=== PATIENT | male | born 1960 | race Caucasian/White ===

== ENCOUNTER 2019-12-15 09:06 | Inpatient (IN) | payer OTHER ==
[~2019-12-15] VITALS: Ht 172.7 cm; Wt 91.1 kg
[2019-12-15 09:44] LABS: BASOPHILS ABSOLUTE AUTO 0.04 K/mm3 (0.00-0.23); BASOPHILS PERCENT AUTO 0 % (0-2); EOSINOPHILS ABSOLUTE AUTO 0.21 K/mm3 (0.00-0.68); EOSINOPHILS PERCENT AUTO 2 % (0-6); Hemoglobin 14.2 g/dL (13.5-17.5); IMMATURE GRAN ABSOLUTE AUTO 0.04 K/mm3 (0.00-0.10); IMMATURE GRAN PERCENT AUTO 0 % (0-1); LYMPHOCYTES ABSOLUTE AUTO 2.16 K/mm3 (0.84-5.20); LYMPHOCYTES PERCENT AUTO 19 % (21-46); MONOCYTES ABSOLUTE AUTO 0.99 K/mm3 (0.16-1.47); MONOCYTES PERCENT AUTO 9 % (4-13); Mean Corpuscular HGB 30.7 pg (26.0-34.0); Mean Corpuscular HGB Conc 32.3 g/dL (31.5-36.5); Mean Corpuscular Volume 95 fL (80-100); Mean Platelet Volume 9.3 fL (9.1-12.4); NEUTROPHILS ABSOLUTE AUTO 7.75 K/mm3 (1.96-9.15); NEUTROPHILS PERCENT AUTO 69 % (41-73); Platelet Count 316 K/mm3 (150-400); RDW Coefficient Variation 13.5 % (11.7-14.2); RDW Standard Deviation 46.6 fL (35.1-46.3); Red Blood Cell Count 4.63 M/mm3 (4.30-5.90); White Blood Cell Count 11.19 K/mm3 (4.00-11.30)
[2019-12-15] MEDS ORDERED: LISI5 PO (09:50)
[2019-12-15] MEDS ORDERED: FURO40 PO (09:50)
[2019-12-15] MEDS ORDERED: SPIR50 PO (09:50)
[2019-12-15] MEDS ORDERED: ASPI81CH PO (09:51)
[2019-12-15] MEDS ORDERED: METO50ER PO (09:51)
[2019-12-15] MEDS ORDERED: ALBU90OI INH (09:51)
[2019-12-15 09:53] LABS: Source, Urine Clean Catch
[2019-12-15 09:57] LABS: Bilirubin, Urine Neg (Neg); Blood, Urine Neg (Neg); Glucose Qualitative, Urine Neg (Neg); Ketones, Urine Neg (Neg); Leukocyte Esterase, Urine Neg (Neg); Nitrite, Urine Neg (Neg); Protein, Urine 1+ (Neg); Urobilinogen, Urine NORM (Normal)
[2019-12-15 09:58] LABS: Appearance, Urine Clear (Clear); Color, Urine Yellow (P-Yellow)
[2019-12-15 10:00] LABS: Base Excess Venous 2.9 mmol/L; PCO2 Venous 53.7 mmHg (38-42); PO2 Venous 34.8 mmHg (38-42); pH Blood Venous 7.34 (7.34-7.37)
[2019-12-15 10:03] LABS: Albumin, Blood 3.9 g/dL (3.4-5.0); Bilirubin, Total 0.6 mg/dL (0.1-1.0); Bun/Creatinine Ratio 22.6 (12.0-20.0); Calcium, Blood 9.1 mg/dL (8.5-10.1); Creatinine, Blood 1.37 mg/dL (0.60-1.20); Globulin, Blood 3.9 g/dL (2.2-4.0); Potassium, Blood 4.5 mmol/L (3.5-5.5); Total Protein, Blood 7.8 g/dL (6.4-8.2); Troponin I 0.167 ng/mL (0.000-0.040)
[2019-12-15 10:08] LABS: U Amphetamine Screen DETECTED; U Barbituate Screen Not Detected; U Benzodiazapine Screen Not Detected; U Buprenorphine Screen Not Detected; U Cannabinoids Screen DETECTED; U Cocaine Screen Not Detected; U Methadone Screen Not Detected; U Methamphetamine Screen DETECTED; U Opiates Screen Not Detected; U Oxycodone Screen Not Detected; U Propoxyphene Screen Not Detected
[2019-12-15] MEDS ORDERED: Symbicort 16010.2 GM INH (12:24)
[2019-12-15] MEDS ORDERED: THERA1 EACH PO (13:15)
[2019-12-15] MEDS ORDERED: Natural Vita400 UNIT PO (13:16)
--- NOTE | 2019-12-15 16:22 | NUR ---
Echocardiogram using 0.60ml of Definity contrastwas performed.
--- NOTE | 2019-12-15 16:38 | NUR ---
MEDICAL RECORDS REQUEST PT PCP IN [facility] IS DR DELISA CORONADO. PHONE #[phone]. MEDICAL RECORDS # . NO ONE ANSWERED. NO RECORED FAX NUMBER. WILL RECALL TOMORROW. CONTINUE POT.
--- NOTE | 2019-12-15 17:11 | NUR ---
EVENING NOTE PT ALERT AND ORIENTED. SR WITH LBBB AND PVC. NO VT NOTED. LAB DRAWN TO CHECK POTASSIUM. ECHO DONE. PT VOIDING WELL PER URINAL. WATCHING THE SUPER BOWL. CHAIN STOCKS BREATHING NOTED BY INTEGRITY CONSULTANT AND NURSE. VSS. PT RELATED THAT HIS BREATHING IS IMPROVING. CONTINUE POT.
--- NOTE | 2019-12-15 20:56 | NUR ---
Assumed care Pt sleeping at time of arrival, breathing even, unlabored. VSS. A&Ox4. Conversing appropriately, making needs known with call light, steady gait, using urinal for voiding, voided 400 mls. Pt stating SOB improved. See shift assessment for detailed assessment. No acute concerns to note at begining of shift. Will continue to monitor.
[2019-12-16 04:23] LABS: Hematocrit 45.4 % (37.0-53.0); Hemoglobin 14.6 g/dL (13.5-17.5); Mean Corpuscular HGB 30.5 pg (26.0-34.0); Mean Corpuscular HGB Conc 32.2 g/dL (31.5-36.5); Mean Corpuscular Volume 95 fL (80-100); Mean Platelet Volume 9.8 fL (9.1-12.4); Platelet Count 321 K/mm3 (150-400); RDW Coefficient Variation 13.2 % (11.7-14.2); RDW Standard Deviation 45.7 fL (35.1-46.3); Red Blood Cell Count 4.79 M/mm3 (4.30-5.90); White Blood Cell Count 9.73 K/mm3 (4.00-11.30)
[2019-12-16 04:47] LABS: Magnesium, Blood 2.5 mg/dL (1.6-2.4)
[2019-12-16 04:48] LABS: Albumin, Blood 3.5 g/dL (3.4-5.0); Albumin/Globulin Ratio 0.9 (0.8-1.8); Bilirubin, Total 0.9 mg/dL (0.1-1.0); Bun/Creatinine Ratio 21.9 (12.0-20.0); Calcium, Blood 9.2 mg/dL (8.5-10.1); Creatinine, Blood 1.6 mg/dL (0.60-1.20); Globulin, Blood 3.9 g/dL (2.2-4.0); Potassium, Blood 4.2 mmol/L (3.5-5.5); Total Protein, Blood 7.4 g/dL (6.4-8.2)
--- NOTE | 2019-12-16 04:56 | NUR ---
Shift Summary No acute events overnight, pt sleeping throughout almost the entire shift. When awake, pt is alert and oriented, able to make needs known, breathing unlabored on 2LNC. Pt with irregular breathing patterns, normal per pt. Tele shows Sinus, BBB, PVC, PAC. One run of nonsustained VTACH of 8 beats this shift. Pt asx. Pt voiding in urinal at bedside. Labs show increased creatinine and decreased GFR. Will continue to monitor and update if acute changes occur before day RN assumes care.
--- NOTE | 2019-12-16 18:25 | NUR ---
SHIFT SUMMARY NO ACUTE CHANGES NOTED THROUGH THE DAY. PT HAS BEEN RESTING QUIETLY IN BED. PT REMAINS A&O X4, VSS, RESP UNLABORED, ON 2 L NC, IV SL, TOLERATING PO INTAKE, VOIDING ESTUARDO URINE. PT HAS BEEN CHANGED TO MEDICAL STATUS AND WILL BE MOVED WHEN A ROOM IS AVAILABLE.
--- NOTE | 2019-12-16 21:38 | NUR ---
Assumed care Assumed care of pt, he is alert and oriented, able to make needs known. Pt tolerated shower this shift. VSS. No events on tele so far. Pt is appropriate and cooperative with care. This pt is more awake and involved this shift than when this RN cared for him 12/15/19 NOC shift. Pt able to recall information appropriately. Lungs clear, diminished slightly to bases. No edema present. Voiding in urinal at bedside. S/L. Will continue to monitor. No acute concerns to note. See shift assessment for detailed assessment
[2019-12-17 04:48] LABS: BASOPHILS ABSOLUTE AUTO 0.04 K/mm3 (0.00-0.23); BASOPHILS PERCENT AUTO 0 % (0-2); EOSINOPHILS ABSOLUTE AUTO 0.31 K/mm3 (0.00-0.68); EOSINOPHILS PERCENT AUTO 3 % (0-6); Hematocrit 45.7 % (37.0-53.0); Hemoglobin 14.9 g/dL (13.5-17.5); IMMATURE GRAN ABSOLUTE AUTO 0.03 K/mm3 (0.00-0.10); IMMATURE GRAN PERCENT AUTO 0 % (0-1); LYMPHOCYTES ABSOLUTE AUTO 2.09 K/mm3 (0.84-5.20); LYMPHOCYTES PERCENT AUTO 22 % (21-46); MONOCYTES ABSOLUTE AUTO 0.98 K/mm3 (0.16-1.47); MONOCYTES PERCENT AUTO 10 % (4-13); Mean Corpuscular HGB 30.8 pg (26.0-34.0); Mean Corpuscular HGB Conc 32.6 g/dL (31.5-36.5); Mean Corpuscular Volume 94 fL (80-100); Mean Platelet Volume 9.7 fL (9.1-12.4); NEUTROPHILS ABSOLUTE AUTO 6.22 K/mm3 (1.96-9.15); NEUTROPHILS PERCENT AUTO 64 % (41-73); Platelet Count 304 K/mm3 (150-400); RDW Coefficient Variation 13.2 % (11.7-14.2); RDW Standard Deviation 45.3 fL (35.1-46.3); Red Blood Cell Count 4.84 M/mm3 (4.30-5.90); White Blood Cell Count 9.67 K/mm3 (4.00-11.30)
[2019-12-17 05:06] LABS: Bun/Creatinine Ratio 23.2 (12.0-20.0); Creatinine, Blood 1.38 mg/dL (0.60-1.20); Potassium, Blood 3.9 mmol/L (3.5-5.5)
--- NOTE | 2019-12-17 05:10 | NUR ---
Shift Summary Pt with no acute events overnight. Pt is excessively tired and hungry, sleeping and eating much of this shift. Overall, VSS, no apparent signs of distress, breathing RA when awake, 2L when sleeping. Breathing is unlabored, pattern is irregular, normal per pt. Independant in room with steady gait. Calls appropriately, calm and cooperative with care. Appreciative of staff. No acute concerns. No declines from initial assessment. Will continue to monitor until day RN assumes care.
--- NOTE | 2019-12-17 08:52 | NUR ---
AM NOTE... ASSUMED CARE OF PT APROX 0700. PT IS A&Ox4 AND IND IN THE ROOM. PT WAS ADMITTED FOR CHF EXAC/ZHEN. CURRENTLY PT IS DIURESING WELL AND MAY D/C HOME TODAY. PT'S VS STABLE, PT DENIES ANY SOB, CHEST PAIN OR N/V. NO EDEMA NOTED ON ASSESSMENT, L/S CLEAR T/O PT IS ON RA WITH O2 SATS >92%. PT HAS IRRGULAR BREATHING PATTERN, PT STATES THIS IS NORMAL FOR HIM. BT PRESENT AND NORMOACTIVE, ABD IS SOFT AND NONTENDER TO PALP. CALL LIGHT IN REACH, WILL CONTINUE TO MONITOR.
--- NOTE | 2019-12-17 11:43 | NUR ---
PT D/C PT D/C HOME. PT EDUCATION PROVIDED VERBALLY AND WRITTEN, NEW MEIDCATION EDUCATION PROVIDED WELL. PT'S BELONGINGS PACKED AND SENT WITHE THE PT. NEW MEDICATIONS CALLED INTO THE PT'S PHARMACY OF CHOICE, FOLLOW UP APPOINTMENTS MAID. PT'S 2 IVS REMOVED WNL. PT'S VS STABLE, PT DENIES CHEST PAIN/PRESURE N/V SOB OR LIGHTHEADEDNESS.
== END 2019-12-17 11:47 | disposition home or self-care (01) | DRG 280 ==
LOC: ER 09:06 → PCU 13:06
PROVIDERS: Nurse Practitioner Acute Care; Physician Assistant; ADMIT Internal Medicine
DX: I11.0 Hypertensive heart disease with heart failure (principal); J96.01 Acute respiratory failure with hypoxia; I21.A1 Myocardial infarction type 2; N17.9 Acute kidney failure, unspecified; I47.2 Ventricular tachycardia; Z79.82 Long term (current) use of aspirin; I50.23 Acute on chronic systolic (congestive) heart failure; F15.10 Other stimulant abuse, uncomplicated; I42.8 Other cardiomyopathies
CPT/HCPCS: 36415; 71046; 80048; 80053; 82550; 82553; 82803; 83735; 83880; 84132; 84484; 85025; 85027; 93005; 93010; 96365; 96375; 99285-25; C8929; J1650; J1940; J3475; Q9957

== ENCOUNTER 2020-01-26 10:58 | Inpatient (IN) | payer OTHER ==
[~2020-01-26] VITALS: Ht 175.3 cm; Wt 87.9 kg
[~2020-01-26 10:58] MED LIST: ALBU90OI INH; ASPI81CH PO; FURO40 PO; LISI5 PO; METO50ER PO; Natural Vita400 UNIT PO; SPIR50 PO; Symbicort 16010.2 GM INH; THERA1 EACH PO
[2020-01-26 11:56] LABS: BASOPHILS ABSOLUTE AUTO 0.03 K/mm3 (0.00-0.23); BASOPHILS PERCENT AUTO 0 % (0-2); EOSINOPHILS ABSOLUTE AUTO 0.08 K/mm3 (0.00-0.68); EOSINOPHILS PERCENT AUTO 1 % (0-6); Hematocrit 41.9 % (37.0-53.0); Hemoglobin 13.4 g/dL (13.5-17.5); IMMATURE GRAN ABSOLUTE AUTO 0.02 K/mm3 (0.00-0.10); IMMATURE GRAN PERCENT AUTO 0 % (0-1); LYMPHOCYTES ABSOLUTE AUTO 2.29 K/mm3 (0.84-5.20); LYMPHOCYTES PERCENT AUTO 26 % (21-46); MONOCYTES ABSOLUTE AUTO 0.82 K/mm3 (0.16-1.47); MONOCYTES PERCENT AUTO 9 % (4-13); Mean Corpuscular HGB 30.7 pg (26.0-34.0); Mean Corpuscular Volume 96 fL (80-100); Mean Platelet Volume 10.1 fL (9.1-12.4); NEUTROPHILS ABSOLUTE AUTO 5.64 K/mm3 (1.96-9.15); NEUTROPHILS PERCENT AUTO 64 % (41-73); Platelet Count 235 K/mm3 (150-400); RDW Coefficient Variation 12.5 % (11.7-14.2); RDW Standard Deviation 44.2 fL (35.1-46.3); Red Blood Cell Count 4.37 M/mm3 (4.30-5.90); White Blood Cell Count 8.88 K/mm3 (4.00-11.30)
[2020-01-26 12:06] LABS: Albumin, Blood 3.8 g/dL (3.4-5.0); Bilirubin, Total 0.7 mg/dL (0.1-1.0); Bun/Creatinine Ratio 16.1 (12.0-20.0); Calcium, Blood 9.3 mg/dL (8.5-10.1); Creatinine, Blood 1.49 mg/dL (0.60-1.20); Globulin, Blood 3.9 g/dL (2.2-4.0); Potassium, Blood 4.5 mmol/L (3.5-5.5); Total Protein, Blood 7.7 g/dL (6.4-8.2); Troponin I 0.088 ng/mL (0.000-0.040)
[2020-01-26 14:45] LABS: International Normalized Ratio 1.07; Prothrombin Time Results 11.4 Sec (9.7-11.5)
--- NOTE | 2020-01-26 15:08 | NUR ---
ADMISSION NOTIFIED BY [employer] OPERATIONS CONSULTANT THAT PT TO BE ADMITTED TO ICU ROOM 15. REPORT RECEIVED FROM SANDEEP SANDOVAL IN ER AT THIS TIME.
--- NOTE | 2020-01-26 15:58 | NUR ---
DR. LOREE RALPH TO BEDSIDE FOR ASSESSMENT. VISUALIZED POST CARDIOVERSION EKG AND ICU NIGHT SHIFT. PLAN TO CONTINUE WITH AMIODERONE, HEPARIN AND START LASIX PER DR. RALPH.
[2020-01-26] MEDS ORDERED: Colace100 MG PO (16:39)
[2020-01-26 17:43] LABS: U Amphetamine Screen DETECTED; U Barbituate Screen Not Detected; U Benzodiazapine Screen Not Detected; U Buprenorphine Screen Not Detected; U Cannabinoids Screen DETECTED; U Cocaine Screen Not Detected; U Methadone Screen Not Detected; U Methamphetamine Screen DETECTED; U Opiates Screen Not Detected; U Oxycodone Screen Not Detected; U Phencyclidine Screen Not Detected; U Propoxyphene Screen Not Detected
--- NOTE | 2020-01-26 19:10 | NUR ---
ASSUMED CARE OF PT, BEDSIDE REPORT RECEIVED. PT IS RESTING QUIETLY ON RIGHT SIDE IN BED BENT AT KNEES AND HIPS TO MODERATELY CURLED POSITION. HE DENIES CP/PRESSURE, STATES THAT HIS BREATHING FEELS "OK" DENIES N/V, DENIES NUMBNESS TINGLING. ADMITS TO 6/10 CRAMPING ABD PAIN THAT HE NOTICED FOLLOWING HIS CARDIOVERSION EARLIER TODAY. HE STATES THAT HE DOES HAVE ABD DISCOMFORT AT BASELINE HOWEVER IT DOES NOT NORMALLY HURT. WARM BLANKET PROVIDED, LIGHTS OFF IN ROOM, CURTAIN PULLED, WILL MONITOR PAIN LEVEL. HEART RATE IS REGULAR, SINUS RHYTHM NOTED ON MONITOR, RATE IN THE 80S, PRESSURE IS BORDERLINE HYPOTENSIVE AT THIS TIME, MAP IS MAINTAINING, ST DEPRESSION AND T WAVE INVERSION IS NOTED ON MONITOR, PER OFFGOING RN THIS HAS MAINTAINED UNCHANGED FOLLOWING CARDIOVERSION AND HAS BEEN VISUALIZED BY DR RALPH AND DISCUSSED, WILL CONT TO MONITOR. LUNGS ARE CLEAR THROUGHOUT, SATS ARE MAINTAINING MID TO UPPER 90S WITH OXYGEN AT 4 L/MIN VIA NC, NO VISIBLE INCREASED WORK OF BREATHING AT THIS TIME AND PT IS SPEAKING IN FULL SENTENCES, SKIN IS PINK, COOL, AND DRY, NO EDEMA IS NOTED. ABD WITH HYPOACTIVE BOWEL TONES, MILD TO MODERATE DISTENTION IS NOTED, SOME TENDERNESS WITH LIGHT PALPATION. URINAL AT BEDSIDE, NO VOID OF YET. AMIODARONE GTT INFUSING AT 1 MG/MIN AT THIS TIME, DUE TO DECREASE AT 2100, HEPARIN GTT INFUSING AT 13 UNITS/KG/HR (21.1 ML/HR) SET FOR 81 KG. WILL CONT TO MONITOR.
--- NOTE | 2020-01-26 19:21 | NUR ---
REPORT TO SANDEEP WEIR TO ASSUME CARE
--- NOTE | 2020-01-26 19:22 | NUR ---
ARRIVAL TO ICU/SUMMARY PT ARRIVED TO ICU 15 THIS AFTERNOON ON AMIODERONE GTT. HEPARIN GTT INITIATED. PT ANXIOUS, RR ELEVATED, BUT 02 SAT 90'S ON ROOM AIR. SLIGHT ST DEPRESSION AND T WAVE INVERSION NOTED ON BAG CHECKER. PT MOANING AND RESTLESS, REPORTS MILD TENDERNESS IN ABDOMEN AND NAUSEA. REPORTS HISTORY OF CONSTIPATION. MEDICATED WITH ZOFRAN, SINCE THEN HAS SLEPT QUIETLY. AROUSES OCCASIONALLY AND MAKES NEEDS KNOWNS, STILL HAS INCREASED RR WHEN AWAKE, BUT RR EVEN AND UNLABORED WHILE ASLEEP. PLACED ON 2 LPM NASAL CANNULA PT DESATURATES IN HIS SLEEP INTERMITTENTLY. BLOOD PRESSURE SOFT, BUT MAPS GREATER THAN 65. PT DROWSY BUT ORIENTED. WITHDRAWN. RELUCTANT TO PARTICIPATE IN ADMISSION QUESTIONS, BUT DOES SO WITH ENCOURAGEMENT AND EDUCATION. PT HAS USED URINAL WITH ESTUARDO OUTPUT, TOX SCREEN SENT AND RESULTS ARE BACK. PT OPEN ABOUT DRUG USE, AND REPORTS, "I WON'T BE DOING IT AFTER TODAY." BED ALARM IN PLACE FOR SAFETY.
--- NOTE | 2020-01-26 21:32 | NUR ---
AMIODARONE GTT RATE DECREASED TO 0.5 MG/MIN
--- NOTE | 2020-01-26 22:07 | NUR ---
NAUSEA PT STATES "I'M GOING TO THROW UP" ZOFRAN ADMIN, WILL MONITOR
--- NOTE | 2020-01-26 22:30 | NUR ---
HYPOTENSION ROUNDED ON PT FOR POST ZOFRAN NAUSEA ASSESSMENT, PT REQUESTS BLANKETS REMOVED AND STATES THAT HE FEELS "HOT" STATES "HELP ME" AND "I DON'T FEEL GOOD" COLOR IS ASHEN, BLOOD PRESSURE OBTAINED 52/39 WITH HOB ELEVATED, HOB LOWERED AND BLOOD PRESSURE RECHECKED, CONTINUES HYPOTENSIVE. CALL PLACED TO DR RALPH REGARDING PT CONDITION AT 2240.
--- NOTE | 2020-01-26 22:50 | NUR ---
DR RALPH AT BEDSIDE, MANUAL BLOOD PRESSURE VERIFIED, VERBAL ORDER FOR LEVOPHED PERIPHERALLY AT 2 MCG/MIN, PHARMACY NOTIFIED VIA [employer].
--- NOTE | 2020-01-26 23:00 | NUR ---
HEPARIN GTT TO STANDBY PER DR RALPH, LEVOPHED STARTED AT 2 MCG/MIN PER ORDERS, PLAN TO TAKE PT TO FORM GRADER
--- NOTE | 2020-01-26 23:10 | NUR ---
PT COLOR BECOMES FLUSHED, FEET AND HANDS ARE NOW WARM TO THE TOUCH, ORDERS RECEIVED FOR STAT CRITICAL CARE CONSULT WITH CONCERN FOR POSSIBLE SEPSIS.
--- NOTE | 2020-01-26 23:15 | NUR ---
DR CRUZ NOTIFIED OF CONSULT, SHE STATES THAT SHE WILL REVIEW PT'S CHART AND PUT IN ORDERS.
[2020-01-26 23:28] LABS: Source, Urine Catheter
[2020-01-26 23:30] LABS: Bilirubin, Urine Neg (Neg); Blood, Urine 5+ (Neg); Glucose Qualitative, Urine Neg (Neg); Ketones, Urine Neg (Neg); Leukocyte Esterase, Urine Neg (Neg); Nitrite, Urine Neg (Neg); Protein, Urine 2+ (Neg); Urobilinogen, Urine 1+ (Normal)
--- NOTE | 2020-01-26 23:30 | NUR ---
DR CRUZ CALLED AND STATES THAT SHE WILL BE IN TO SEE PT, ORDERS NOTED. DR RALPH REMAINS IN ROOM FOR CENTRAL LINE INSERTION OF THIS TIME. LEVOPHED RATE INCREASED TO 4 MCG/MIN PER DR RALPH.
[2020-01-26 23:50] LABS: Color, Urine Yellow (P-Yellow)
--- NOTE | 2020-01-26 23:50 | NUR ---
CENTRAL LINE INSERTION PROCEDURE COMPLETE, LEVOPHED TO CENTRAL LINE PER DR RALPH ATTHIS TIME, LABS DRAWN PER ORDERS.
[2020-01-26 23:51] LABS: Appearance, Urine Clear (Clear); Bacteria Few /hpf; Squamous Epithelial Cells Not Seen /hpf (Few); White Blood Cells, Urine 0-2 /hpf (0-5)
[2020-01-27] LABS: Bicarbonate Venous 23.5 mmol/L (24.0-30.0); PCO2 Venous 55.4 mmHg (38-42); PO2 Venous 40.6 mmHg (38-42)
[2020-01-27 00:04] LABS: Hematocrit 45.8 % (37.0-53.0); Hemoglobin 15.2 g/dL (13.5-17.5); Mean Corpuscular HGB 31.5 pg (26.0-34.0); Mean Corpuscular HGB Conc 33.2 g/dL (31.5-36.5); Mean Corpuscular Volume 95 fL (80-100); Mean Platelet Volume 9.7 fL (9.1-12.4); Platelet Count 214 K/mm3 (150-400); RDW Coefficient Variation 12.4 % (11.7-14.2); RDW Standard Deviation 43.2 fL (35.1-46.3); Red Blood Cell Count 4.82 M/mm3 (4.30-5.90); White Blood Cell Count 20.93 K/mm3 (4.00-11.30)
--- NOTE | 2020-01-27 00:24 | NUR ---
EKG COMPLETE, T WAVES NOTED UPRIGHT IN LEAD II, ST DEPRESSION IS IMPROVED.
[2020-01-27 00:26] LABS: International Normalized Ratio 1.41
[2020-01-27 00:29] LABS: Magnesium, Blood 1.9 mg/dL (1.6-2.4)
[2020-01-27 00:30] LABS: Prothrombin Time Results 14.8 Sec (9.7-11.5)
--- NOTE | 2020-01-27 00:30 | NUR ---
eCHOCARDIOGRAM COMPLETED USING 0.60ML OF DEFINITY CONTRAST.
[2020-01-27 00:32] LABS: BAND PERCENT MAN 4 % (0-8); BASOPHILS PERCENT MAN 0 % (0-2); EOSINOPHILS PERCENT MAN 0 % (0-6); LYMPHOCYTES ABSOLUTE MAN 1.46 K/mm3 (0.84-5.20); LYMPHOCYTES PERCENT MAN 7 % (21-46); MONOCYTES ABSOLUTE MAN 1.25 K/mm3 (0.16-1.47); MONOCYTES PERCENT MAN 6 % (4-13); SEG NEUTROPHILS PERCENT MAN 83 % (41-73); TOTAL CELLS COUNTED 100
[2020-01-27 00:34] LABS: Albumin, Blood 3.4 g/dL (3.4-5.0); Bun/Creatinine Ratio 12.5 (12.0-20.0); Calcium, Blood 9.1 mg/dL (8.5-10.1); Creatinine, Blood 2.4 mg/dL (0.60-1.20); Globulin, Blood 3.5 g/dL (2.2-4.0); Total Protein, Blood 6.9 g/dL (6.4-8.2)
--- NOTE | 2020-01-27 00:45 | NUR ---
RESPIRATORY PANEL COLLECTED, PT TOLERATED WELL.
--- NOTE | 2020-01-27 01:00 | NUR ---
DR RALPH RETURNS TO BEDSIDE, PLAN FOR THIS SHIFT IS TO TITRATE LEVOPHED FOR MAP OF 65, START DOBUTAMINE AT 3 MCG/KG/MIN AND TITRATE FOR URINE OUTPUT NOT TO EXCEED 10 MCG/KG/MIN.
--- NOTE | 2020-01-27 01:12 | NUR ---
PT WITH 10 SECOND RUN OF TACHYCARDIA 120-150 BPM, HE REMAINS ALERT AND ORIENTED, DENIES CP/PRESSURE, DENIES SOB/DYSPNEA, DENIES DIZZINESS/SYNCOPE, DENIES PALPITATIONS. WILL MONITOR.
[2020-01-27 02:07] LABS: Adenovirus Not Detected (NOT DETECT); Bordetella pertussis Not Detected (NOT DETECT); Chlamydophila pneumoniae Not Detected (NOT DETECT); Coronavirus 229E Not Detected (NOT DETECT); Coronavirus HKU1 Not Detected (NOT DETECT); Coronavirus NL63 Not Detected (NOT DETECT); Coronavirus OC43 Not Detected (NOT DETECT); Human Metapneumovirus Not Detected (NOT DETECT); Human Rhinovirus/Enterovirus Not Detected (NOT DETECT); Influenza A/2009-H1 Not Detected (NOT DETECT); Influenza A/H1 Not Detected (NOT DETECT); Influenza A/H3 Not Detected (NOT DETECT); Influenza B Not Detected (NOT DETECT); Mycoplasma pneumoniae Not Detected (NOT DETECT); Parainfluenza Virus 1 Not Detected (NOT DETECT); Parainfluenza Virus 2 Not Detected (NOT DETECT); Parainfluenza Virus 3 Not Detected (NOT DETECT); Parainfluenza Virus 4 Not Detected (NOT DETECT); Respiratory Syncytial Virus Not Detected (NOT DETECT)
[2020-01-27 05:33] LABS: BASOPHILS ABSOLUTE AUTO 0.02 K/mm3 (0.00-0.23); BASOPHILS PERCENT AUTO 0 % (0-2); EOSINOPHILS PERCENT AUTO 0 % (0-6); Hematocrit 43.2 % (37.0-53.0); Hemoglobin 14.4 g/dL (13.5-17.5); IMMATURE GRAN ABSOLUTE AUTO 0.08 K/mm3 (0.00-0.10); IMMATURE GRAN PERCENT AUTO 0 % (0-1); LYMPHOCYTES ABSOLUTE AUTO 0.95 K/mm3 (0.84-5.20); LYMPHOCYTES PERCENT AUTO 5 % (21-46); MONOCYTES ABSOLUTE AUTO 1.05 K/mm3 (0.16-1.47); MONOCYTES PERCENT AUTO 6 % (4-13); Mean Corpuscular HGB 31.3 pg (26.0-34.0); Mean Corpuscular HGB Conc 33.3 g/dL (31.5-36.5); Mean Corpuscular Volume 94 fL (80-100); NEUTROPHILS ABSOLUTE AUTO 16.85 K/mm3 (1.96-9.15); NEUTROPHILS PERCENT AUTO 89 % (41-73); Platelet Count 219 K/mm3 (150-400); RDW Coefficient Variation 12.2 % (11.7-14.2); RDW Standard Deviation 41.9 fL (35.1-46.3); White Blood Cell Count 18.95 K/mm3 (4.00-11.30)
[2020-01-27 05:54] LABS: International Normalized Ratio 1.44; Prothrombin Time Results 15.1 Sec (9.7-11.5)
[2020-01-27 05:57] LABS: Albumin, Blood 3.3 g/dL (3.4-5.0); Albumin/Globulin Ratio 0.9 (0.8-1.8); Bilirubin, Total 1.6 mg/dL (0.1-1.0); Bun/Creatinine Ratio 13.1 (12.0-20.0); Creatinine, Blood 2.29 mg/dL (0.60-1.20); Globulin, Blood 3.5 g/dL (2.2-4.0); Magnesium, Blood 1.8 mg/dL (1.6-2.4); Potassium, Blood 4.8 mmol/L (3.5-5.5); Total Protein, Blood 6.8 g/dL (6.4-8.2)
--- NOTE | 2020-01-27 06:24 | NUR ---
PT RESTS QUIETLY AFTER MIDNOC, AROUSES EASILY TO VERBAL STIMULI, DENIES PAIN, DENIES NAUSEA, DENIES CP/PRESSURE, DENIES SOB/DYSPNEA AND STATES THAT HE IS "ACTUALLY FEELING PRETTY GOOD" PRESSURES HAVE BEEN IMPROVED WITH LEVOPHED, INTITIATED AT 2 MCG/MIN AND TITRATED UP TO MAX OF 6 MCG/MIN THIS SHIFT, HAVE TITRATED BACK DOWN TO 4 MCG/MIN OF THIS TIME, DOBUTAMINE STARTED INFUSING AT 3 MCG/KG/MIN AT 0109 THIS AM, PT WAS NOTED WITH 10 SECOND RUN OF TACHYCARDIA UP TO NEAR 150 BPM AT 0112, PT DENIED SYMPTOMS AT THAT TIME AND NO FURTHER INCIDENTS SINCE THAT TIME, RHYTHM STRIP REVIEWED BY DR RALPH THIS AM. PT SKIN HAS REMAINED PWD SINCE INITIATION OF LEVOPHED. URINE OUPTUT IMPROVED. GOAL FOR TODAY PER DR RALPH IS TO TITRATE LEVOPHED TO STANDBY. QUAD LUMEN CENTRAL LINE TO RIGHT GROIN NEAR MIDNOC, DRESSING REMAINS CDI THIS AM, SITE WNL WITH SMALL AMOUNT OF OOZING PRESENT UNDER DRESSING. PT WAS ON NRB MASK AT 15 L/MIN WITH PRIOR DOCUMENTED HYPOTENSIVE EPISODE SEE NOTES FROM 2230 TO 013 THIS AM, HAVE BEEN ABLE TO RETURN TO NASAL CANNULA AT 6 L/MIN AND TITRATE DOWN TO 4 L/MIN OF THIS TIME, LUNGS REMAIN CLEAR THROUGHOUT, PT CONTINUES TACHYPNEIC HOWEVER ALSO CONTINUES TO DENY SOB/DYSPNEA THIS AM. URINE OUTPUT OF 790 ML SINCE VOGT INSERTION AND INITIATION OF DOBUTAMINE AND LEVOPHED. DR RALPH STATES PLAN IS TO DIURESE PT AFTER LEVOPHED IS SUCCESSFULLY TITRATED TO OFF.
--- NOTE | 2020-01-27 07:39 | NUR ---
CARE ASSUMED REPORT RECEIVED, CARE ASSUMED AT 0700 FROM SANDEEP WEIR. LEVOPHED, DOPAMINE AND HEPARIN INFUSING PER ORDERS. SEE ICU FLOWSHEET. PT SLEEPY, BUT AROUSES TO NAME. DENIES PAIN, CHEST PAIN OR PRESSURE, DIZZINESS, OR SOB. SLIGHTLY TACHYPNEIC. RR 20'S. LOW GRADE FEVER - TEMP VOGT. CENTRAL LINE TO RIGHT FEMORAL INFUSING. CONTINUOUS ICU MONITOR SHOWS NORMAL SINUS RHYTHM - RATE 90'S-100'S. BP STABLE WITH PRESSORS. CALL LIGHT IN PLACE FOR SAFETY. PT AGREEABLE TO USE CALL LIGHT FOR NEEDS.
--- NOTE | 2020-01-27 09:26 | NUR ---
DR. LOREE RALPH TO BEDSIDE FOR ASSESSMENT. PT REQUESTING ICE CHIPS. PER DR. RALPH, OK TO FEED PATIENT BUT START WITH CLEARS AND ADVANCE TOLERATED. LOVEPHED TITRATED DOWN PER DR. RALPH REQUEST. PLAN TO TITRATE LEVOPHED OFF MAXIMILIANO TO MAINTAIN MAP OF 60 OR GREATER. START PO AMIODERONE. SEE PROVIDER PROGRESS NOTE AND NEW ORDERS.
--- NOTE | 2020-01-27 12:26 | NUR ---
HEART RHYTHM/DR. RALPH PT'S HEART RHYTHM NOTED TO HAVE INCREASED PVC'S AND PAC'S. PT ALERT, ORIENTED. EXTREMITIES PINK, WARM AND DRY. BP STABLE. CALL PLACED TO DR. ARLPH. ORDER TO TURN OFF DOBUTAMINE. DOBUTAMINE OFF AT THIS TIME.
--- NOTE | 2020-01-27 13:11 | NUR ---
UPDATE PT HAVING INCREASED ECTOPY, RATE UP TO 140'S INTERMITTENTLY. BP STABLE. PT CONTINUES TO BE ALERT, ORIENTED. DENIES CHEST PAIN/DIZZINESS. UPDATED DR. RALPH. NEW ORDER TO INCREASE AMIODERONE PO DOSE TO FOUR TIMES PER DAY, FIRST DOSE STAT. AMIODERONE GIVEN.
--- NOTE | 2020-01-27 16:27 | NUR ---
DR. LOREE RALPH TO BEDSIDE FOR REASSESSMENT. INSPECTOR BARREL HISTORY REVIEWED BY DR. RALPH, NO NEW ORDERS AT THIS TIME. CONTINUE WITH HIGH DOSE ORAL AMIODERONE FOR ECTOPY.
--- NOTE | 2020-01-27 18:21 | NUR ---
SUMMARY SINCE PREVIOUS NOTE, PT HAS CONTINUED TO HAVE PVC'S, PAC'S AND INTERMITTENTLY GONE INTO AN ELEVATED RATE OF 130'S-140'S. BP STABLE. PT HAS DENIED CHEST PAIN, DIZZINESS OR SHORTNESS OF BREATH. HAS SLEPT MOST OF DAY, BUT AROUSES EASILY. ATE ENTIRE DINNER. PROVIDED WITH WARM BLANKETS. PT RECEPTIVE TO EDUCATION REGARDING PLAN OF CARE, SAYS, "I AM NEVER USING METH AGAIN AFTER ALL OF THIS." GOOD OUTPUT FROM VOGT CATHETER. NO BOWEL MOVEMENT TODAY. CALLING APPROPRIATELY FOR NEEDS.
--- NOTE | 2020-01-27 19:00 | NUR ---
ASSUMED CARE OF PT, BEDSIDE REPORT RECEIVED. PT IS ALERT AND ORIENTED RECLINING IN BED, SPEAKING IN FULL SENTENCES AND VISITING WITH FAMILY AT BEDSIDE. HE DENIES SOB/DYSPNEA, DENIES CP/PRESSURE, DENIES N/V. LUNGS CLEAR THROUGHOUT, SATS MAINTAINING WITH OXYGEN AT 4 L/MIN VIA NC, NO VISIBLE INCREASED WORK OF BREATHING AT REST. SINUS RHYTHM NOTED WITH PVCS AND PACS, PRESSURE IS MAINTAINING, LEVOPHED AND DOBUTAMINE GTTS ARE ON STANDBY, SKIN IS PWD, NO EDEMA IS NOTED, FEET AND HANDS BILAT ARE WARM WITH FULL RADIAL PULSES AND FAINT PEDAL PULSES. NORMOACTIVE BOWEL TONES ARE NOTED, ABD SOFT, NO GRIMACING/GUARDING WITH PALPATION. VOGT REMAINS IN PLACE DRAINING ESTUARDO URINE TO GRAVITY, SOME SEDIMENT IS NOTED IN TUBING. CENTRAL LINE REMAINS IN PLACE TO RIGHT GROIN, SITE WNL, DRESSING CDI. HEPARIN GTT INFUSING AT 15 UNITS/KG.
--- NOTE | 2020-01-27 19:14 | NUR ---
Per admit trigger, I saw Mr. Green to offer prayer and spiritual support. No family present at time of visit. He did not awaken to voice or touch. Prayer provided at bedside. Per chart, pt is Yazidism. Father Jayy will be following pt when available.
--- NOTE | 2020-01-27 19:23 | NUR ---
BEDSIDE REPORT TO SANDEEP WEIR TO ASSUME CARE
[2020-01-28 04:26] LABS: Bun/Creatinine Ratio 14.1 (12.0-20.0); Calcium, Blood 8.5 mg/dL (8.5-10.1); Creatinine, Blood 1.85 mg/dL (0.60-1.20); Magnesium, Blood 1.9 mg/dL (1.6-2.4); Potassium, Blood 4.8 mmol/L (3.5-5.5)
--- NOTE | 2020-01-28 07:30 | NUR ---
PT RESTS QUIETLY THROUGHOUT SHIFT, DENIES PAIN, DENIES N/V, DENIES CP/PRESSURE, DENIES SOB/DYSPNEA, STATES THAT HE HAS BEEN FEELING PRETTY GOOD. LUNGS REMAIN CLEAR THROUGHOUT THIS SHIFT, NO INCREASED WORK OF BREATHING IS NOTED WHILE PT IS AT REST, MILD INCREASED WORK OF BREATHING WITH INCREASE IN ACTIVITY HOWEVER SATS MAINTAIN WITH OXYGEN VIA NC NOW AT 2 L/MIN. CONTINUES IN SINUT RHYTHM THROUGHOUT NOC, FREQUENCY OF PVCS AND PACS HAS DECREASED HOWEVER THEY DO CONTINUE, PRESSURES ARE MAINTAINED WITH LEVOPHED AND DOBUTAMINE ON STANDBY. DR RALPH IN THIS AM, PLAN TO HOLD HEPARIN X 3 HOURS AND THEN DC CENTRAL LINE, HEPARIN TO STANDBY AT 0650 THIS AM, PHARMACY AWARE AND REQUESTS NOTIFIED IF HEPARIN RESUMED OR DC'D.
--- NOTE | 2020-01-28 07:50 | NUR ---
ASSUMED CARE PT LIES IN BED ASLEEP DURING REPORT, WHICH WAS GIVEN BY SANDEEP WEIR. STABLE VITALS, PT IS ON 2LPM NC WITH SAT'S IN THE MID 90'S. NO INCREASED WORK OF BREATHING NOTED, PT DENIES CP, SOB, AND DIZZINESS. PT HAS A PATENT AND DRAINING VOGT CATHETER. BED IS LOW AND LOCKED. CALL LIGHT WITHIN REACH. NO CURRENT GTTPS.
--- NOTE | 2020-01-28 09:27 | NUR ---
STATUS CHANGE/UPDATE PER NOC NURSE: LOREE WANTS PT TO STAY ONE MORE DAY IN ICU FOR MONITORING. SAIGAL: WHEN LOREE IS READY, AND PENDING ANY ACUTE CHANGES - PT CAN BE MADE MEDICAL STATUS WITH TELLY.
--- NOTE | 2020-01-28 17:45 | NUR ---
SHIFT SUMMARY PT HAD A GOOD DAY. HE IS ALERT AND ORIENTED X 4, HE HAS BEEN OFF PRESSORS/INOTROPES SINCE YESTERDAY, GOT UP TO THE CHAIR, AND HAD HIS VOGT REMOVED. VITALS REMAINED STABLE ALL DAY. PT HAD ADEQUATE URINE OUTPUT. HE WAS PUT BACK ON THE HEPARIN GTTP (12.3 UNITS/KG/HR, 81KG WEIGHT, AND 19.9 ML/HR - VERIFIED AND CONFIRMED BY DESTIN RN). @ 1200 - A FEW HOURS AFTER HAVING HIS FEMORAL CVC PULLED. HE WAS MADE PCU STATUS APPROX. AROUHND [id number]. BED LOW AND LOCKED. CALL LIGHT EDHIN REACH.
--- NOTE | 2020-01-28 21:00 | NUR ---
DURING BEDSIDE REPORT, PT WAS BOLUSED W HEPARIN & GTT INCREASED PER PHARMACY, SEE MAR. PT IS ALERT, DENIES SOB OR OTHER DISCOMFORT, NO CHEST PAIN. PT IS ON ROOM AIR. MONITOR SHOWS ST, VSS. PT VOIDING PER URINAL, CONCENTRATED URINE. PT AMB TO SINK WO DIFF, BRUSHED TEETH & WASHED FACE & AMB BACK TO BED. CALL LIGHT IS IN REACH.
--- NOTE | 2020-01-29 00:51 | NUR ---
PT TO TRANSFER TO PCU RM 12. REPORT GIVEN TO Sophie VELÁSQUEZ RN. PT TRANSPORTED BY WHEELCHAIR BY EMERGENCY MANAGEMENT DIRECTOR. PT HAS BEEN RESTING WO COMPLAINT. CONT ON HEPARIN GTT.
--- NOTE | 2020-01-29 01:09 | NUR ---
PCU ARRIVAL / CARE ASSUMPTION PT BROUGHT TO PCU RM 12 FROM ICU BY WHEEL CHAIR @ APPROX 0100. PT A&O X4, ABLE TO STAND & AMBULATE FROM W.C. TO BED W/ SBA. HEPARIN GTT INFUSING PER ORDERS, VERIFIED W/ 2ND RN. VSS. SPO2 > 92% ON RA. MONITOR SHOWS SR-ST, HR 90's-110. PT DENIES PAIN/DISCOMFORT OR NEEDS AT THIS TIME, STATING "I'M JUST TIRED." PT SETTLED IN TO BED, GOING TO SLEEP. WILL CONTINUE TO MONITOR AND PROVIDE CARE.
[2020-01-29 03:27] LABS: Hemoglobin 13.8 g/dL (13.5-17.5); Mean Corpuscular HGB 31.2 pg (26.0-34.0); Mean Corpuscular HGB Conc 33.7 g/dL (31.5-36.5); Mean Corpuscular Volume 93 fL (80-100); Mean Platelet Volume 10.2 fL (9.1-12.4); NRBC ABSOLUTE 0.03 K/mm3 (0.00-0.02); NRBC Auto 0.2 /100 WBC (0.0-0.2); Platelet Count 215 K/mm3 (150-400); RDW Coefficient Variation 12.2 % (11.7-14.2); Red Blood Cell Count 4.42 M/mm3 (4.30-5.90)
[2020-01-29 03:47] LABS: Bun/Creatinine Ratio 17.5 (12.0-20.0); Calcium, Blood 8.9 mg/dL (8.5-10.1); Creatinine, Blood 1.43 mg/dL (0.60-1.20); Magnesium, Blood 1.9 mg/dL (1.6-2.4); Potassium, Blood 4.8 mmol/L (3.5-5.5)
--- NOTE | 2020-01-29 06:11 | NUR ---
SHIFT SUMMARY PT CONTINUES TO BE A&O X4. VSS. MONITOR SHOWS SR-ST, HR 90's-110. NO EVENTS OVERNIGHT. WILL CONTINUE TO MONITOR AND PROVIDE CARE UNTIL REPORT OFF TO DAY SHIFT RN.
--- NOTE | 2020-01-29 08:49 | NUR ---
AM NOTE... ASSUMED CARE OF PT APROX 0700, PT IS A&Ox4 AND SBA IN THE ROOM. PT'S HEPARIN GTT RUNNING PER ORDERS. PT IS NSR IN THE 80'S-90'S. PT DENIES CHEST PAIN/PRESSURE N/V OR SOB. VS STABLE AT THIS TIME. L/S CLEAR T/O, PT IS ON RA WITH O2 SATS >90%. BT PRESENT AND HYPOACTIVE ABD SOFT AND NONTENDER TO PALP CALL LIGHT IN REACH WILL CONTINUE TO MONTIOR UNITL REPORT IS GIVEN TO ONCOMING RN.
[2020-01-29 10:38] LABS: CHOL/HDL RATIO 3.7; Cholesterol 156 mg/dL (50-200); HDL Cholesterol 42 mg/dL (>39); LDL/HDL RATIO 2.4; Low Density Lipoprotein Chol 103 mg/dL (0-110); Triglycerides 57 mg/dL (30-160); Troponin I 0.075 ng/mL (0.000-0.040); Very Low Density Lipoprot Chol 11 mg/dL (6-32)
[2020-01-29 10:53] LABS: Alanine Aminotransfer (ALT/SGP 5686 U/L (12-78); Aspartate Aminotrans (AST/SGOT 2888 U/L (12-37)
--- NOTE | 2020-01-29 14:19 | NUR ---
Pt. is in bed resting and seems to be doing fine,offered prayers for thept.
--- NOTE | 2020-01-29 18:20 | NUR ---
SHIFT SUMMARY... NO ACUTE NEGATIVE CHANGES NOTED THIS SHIFT. PT'S VS HAVE BEEN STABLE T/O SHIFT. PT HAD SHOWER THIS AFTERNOON WITH MINIMAL ASSIST. HEPARIN GTT WAS STOPPED AT 1745 WHEN XARELTO WAS GIVEN PER CARDIOLOGY PROVIDER ORDERS. 2L O2 WAS PLACED ON THE PT PER O2 SATS DROPPING TO MID 80'S IN HIS SLEEP. CARDIOLOGY PROVIDER AWARE AND NEW ORDERS OBTAINED. CALL LIGHT IN REACH WILL CONTINUE TO MONITOR UNTIL REPORT IS GIVEN TO ON COMING RN.
--- NOTE | 2020-01-29 19:41 | NUR ---
CARE ASSUMPTION PT A&O X4. VSS. MONITOR SHOWS SR, HR 90's. LUNG SOUNDS CLEAR, DIM IN BASES. SPO2 > 90% ON 3L NC TITRATED UP FROM 2L. RR 20-30. BREATHING IRREGULAR W/ EPISODES OF 15 SECONDS W/OUT TAKING A BREATH WHILE AWAKE. PT REPORTS THIS BREATHING PATTERN TO HAVE BEEN OCCURING "FOR AWHILE" OVER THE "PAST FEW DAYS." PT DENIES ANY DISCOMFORT. WILL CONTINUE TO MONITOR AND PROVIDE CARE.
[2020-01-30 05:33] LABS: Albumin, Blood 3.4 g/dL (3.4-5.0); Albumin/Globulin Ratio 0.9 (0.8-1.8); Calcium, Blood 8.7 mg/dL (8.5-10.1); Creatinine, Blood 1.53 mg/dL (0.60-1.20); Globulin, Blood 3.6 g/dL (2.2-4.0); Potassium, Blood 4.6 mmol/L (3.5-5.5)
--- NOTE | 2020-01-30 06:16 | NUR ---
SHIFT SUMMARY PT CONTINUES TO BE A&O X4. VSS. MONITOR SHOWING SR, HR 90's. LUNG SOUNDS CLEAR, DIM IN BASES. SPO2 > 90% ON 3L NC W/ RR 20-30 & IRREGULAR. PT C/O FEELING HOT ON MULT OCCASSIONS THIS SHIFT. PT PROVIDED W/ FAN AND ICE CHIPS UPON PT REQUEST T/O SHIFT. PT TEMP NORMAL. WILL CONTINUE TO MONITOR AND PROVIDE CARE UNTIL REPORT OFF TO DAY SHIFT RN.
--- NOTE | 2020-01-30 07:43 | NUR ---
pt laying in bed on his side, wakes easily, a/ox3, pleasant and cooperative with care, follows commands well, denies any complaints states he slept well, plan is to go home tomorrow, lungs are clear t/o, dim in bases, resp even and unlabored, no cough noted, is on 2 liters 02 via n/c, hrr, tele in place running sr to st per monitor, see strip, no edema noted, ppp+2, cap refill <3sec, vs stable, afebrile, iv site is clear and patent, btx4, abd flat soft nontender, voids without diff, skin has a few scabs, otherwise c/d/i, keara, melodie, call light in reach.
--- NOTE | 2020-01-30 12:28 | NUR ---
Met pt. in bed resting and doing fine offered prayers
--- NOTE | 2020-01-30 13:38 | NUR ---
PT HAD VISITORS IN ROOM, HE IS SITTING UP ON THE SIDE OF THE BED, DOING OK, HE DENIES COMPLAINTS. CALL LIGHT IN REACH.
--- NOTE | 2020-01-30 14:48 | NUR ---
Spiritual care visit conducted. Patient is lying on his side and resting but easily awakens to the sound of his name. Patient tells me about his recent medical history, his recent move [facility] the [place] [facility] and his Hindu. Patient explains that he is living with his girlfriend and will be filing for disability after discharge from the hospital. Patient shares about his fears connected to his heart and to the covid-19 pandemic. I listen empathically, normalize patient's experience and provide pastoral preparole counseling aide and prayer. Patient responds well and shows signs of improved hope. I will continue to remain available to patient and family.
--- NOTE | 2020-01-30 17:48 | NUR ---
sleeping when left undisturbed, no acute changes this shift. waiting on life vest. call light in reach.
[2020-01-31 04:12] LABS: Bun/Creatinine Ratio 20.4 (12.0-20.0); Calcium, Blood 8.2 mg/dL (8.5-10.1); Creatinine, Blood 1.47 mg/dL (0.60-1.20); Magnesium, Blood 1.8 mg/dL (1.6-2.4)
--- NOTE | 2020-01-31 06:09 | NUR ---
SHIFT SUMMARY PT CONTINUES TO BE A&O X4. MONITOR SHOWS SR, HR 80's-100. VSS. NO EVENTS OVERNIGHT. PT AWAITING POTENTIAL DISCHARGE HOME W/ LIFE VEST. WILL CONTINUE TO MONITOR AND PROVIDE CARE UNTIL REPORT OFF TO DAY SHIFT RN.
--- NOTE | 2020-01-31 07:30 | NUR ---
pt laying in bed, wakes easily, denies any complaints, states he feels ok, lungs are clear t/o, dim in bases, resp even and unlabord, no cough noted, hrr, tele in place running sr with pac's, no edema noted, ppp+2, cap refill <3sec, vs stable, afebrile, iv site is clear and patent, btx4, abd flat soft nontender, voids with out diff, skin c/w/d, maew, melodie, call light in reach.
--- NOTE | 2020-01-31 09:28 | NUR ---
CALLED DR. CHAUHAN WITH + [facility].
--- NOTE | 2020-01-31 16:30 | NUR ---
SPOKE WITH DR. CHAUHAN ABOUT BEING DISCHARGED, HE WOULD LIKE TO KEEP HIM ONE MORE DAY, AND IF IS CLEARED WILL SEND HOME TOMORROW. REPORT GIVEN TO TYSON HOPKINS. HE IS GETTING FITTED FOR HIS LIFE VEST NOW.
--- NOTE | 2020-01-31 18:50 | NUR ---
TRANSFER SUMMARY PATIENT TRANSFER SUMMARY. PATIENT LEFT UNIT VIA WHEELCHAIR TO MEDICAL FLOOR ROOM 308. ALERT AND ORIENTED X4 WITH MILD SBA. RESP E/U ON 0-2 LPM NC - PATIENT HAS SLIGHT DECREASE IN SPO2 WITH SLEEP/DROWSINESS. KEPT ON 2 LPM. REPORTED TO YAMILETH Corrigan ON MEDICAL FLOOR. PATIENT LEFT WITH HIS BELONGINGS IN NO ACUTE DISTRESS.
--- NOTE | 2020-01-31 23:16 | NUR ---
PT MOVED TO ROOM 310 FROM 308 FOR NURSING CONVIENCE; ALL PERSONAL BELONGINGS MOVED TO ROOM; PT AMBULATED TO NEW ROOM WITH GAIT SLOW AND STEADYY
--- NOTE | 2020-02-01 06:13 | NUR ---
LILIANA--MECHANICAL CAD DESIGNER CALLED AND SAID PTS HEART RATE WAS 138; A/FIB; VITAL SIGNS STABLE; DENIES CHEST PAIN OR NAUSEA; DR TREVINO NOTIFIED WITH ORDERS.
--- NOTE | 2020-02-01 06:26 | NUR ---
SHIFT SUMMARY: 59 Y/O MALE RESTED COMFORTABLY ALL SHIFT WHILE WEARING DEFIBRILLATOR LIFE VEST ALL SHIFT; PT HAD EPISODES OF NSR CONVERTING TO A/FIB TWICE WITH HEART RATE AVERAGING 110-140; DR TREVINO NOTIFIED WITH LOPRESSOR 5MG IVP GIVEN WITH HEART RATE DECREASED FROM 140 TO 112 PER PCU JUKE BOX MECHANIC; DENIES PAIN OR NAUSEA; BED LOW POSITION WITH CALL LIGHT AT SIDE.
--- NOTE | 2020-02-01 08:00 | NUR ---
PT. HEART RATE 130 AND IN A-FLUTTER. CALLED DR. HURD, PHONE WENT TO VOICE MAIL, LEFT MESSAGE.
--- NOTE | 2020-02-01 09:00 | NUR ---
PT. STILL IN A-FLUTTER, CALLED DR. HURD WHO ADDED 200MG MORE OF PO AMIODORONE AND THE 400MG OF AMIODORONE 1399 AND 1999.
--- NOTE | 2020-02-01 11:45 | NUR ---
informed of patient hr of 134 in [place]. stated she made changes this morning to his medication. No new orders at this time.
--- NOTE | 2020-02-01 16:00 | NUR ---
CALLED DR. HURD ONCE AGAIN THE HEART RATE STILL IN THE 130'S, SHE HAD ME CALL THE ELECTRONIC GAMING DEVICE SUPERVISOR TO TAKE OVER THE CARE. NOTIFIED.
--- NOTE | 2020-02-01 17:07 | NUR ---
PT. TRANSFERRED TO PCU-14 PER THE DIRECTOR OF ONCOLOGY SO HE CAN BE STARTED ON AN AMIODORONE DRIP. REPORT GIVEN TO Garcia BARRIENTOS RN. AND PT. TRANSFERRED.
--- NOTE | 2020-02-01 18:53 | NUR ---
SHIFT NOTE PT ARRIVED FROMMEDICAL FLOOR AFTER SUSTAINED AFIB AT RATE OF 130. PT ARRIVED WITH LIFE VEST IN PLACE. DENIES SOB OR CP. A/O X4. ARRIVES ALSO IN AFIB WITH RATE OF 130. PT MEDCIATED WITH PO LOPRESSOR AND AMIODARONE DRIP STARTED WHICH PT EXPRESSED UNDERSTANDING OF, PT HAS BEEN ON PO AMIODARONE. PT ASSUMES POSITION OF COMFORT IN BED, NADN.
--- NOTE | 2020-02-02 05:04 | NUR ---
END OF SHIFT SUMMARY VSS. AMIODORONE GTT INFUSING, ON TITRATION PROTOCOL. BP TOLERATES THIS. HR REMAINS 100'S. PT NPO SINCE MIDNIGH FOR POSSIBILITY OF CARDIOVERSION THIS AM. PT HAS EXPERIENCED SEVERE ABD DISCOMFORT AND NAUSEA. PT STATES NOT HAVING BM X 7 DAYS. BT'S HYPOACTIVE, LOWER QUADRANTS TENDER AND PAINFUL. ABD MILDLYN DISTENDED. PT STARTED ON COLACE/SENNA, THIS SUCCESFULLY PRODUCED A FEW SMALL HARD BM'S. PT [id number] TO EXPERIENCE MORE SEVERE PAIN ACCOMPANIED WITH NAUSEA. SUPPOSITORY ADMINISTERED. THIS PRODUCES ANOTHER SET OF SMALL PEBBLE LIKE BM'S. PT SHORTLY AFTER ASKS NURSE FOR ENEMA DUE TO THE CONTINUED FEELING OF PRESSURE/PAIN. ENEMA [id number] TO WHICH ANOTHER SET OF VEY HARD BM'S WERE PASSED. PT STATES CONTINUED DISCOMFORT BUT STATES IT HAS LESSENED WELL THE PAIN/PRESSURE. BM'S PRESENT WITHOUT ANY SIGN OF BLEEDING. LIFE VEST IN PLACE. HAS BEEN ON NC O2 FOR COMFORT/SOB ASSOCIATED WITH THE ABD PAIN. WILL CONTINUE TO MONITOR ABD AND WILL MENTION POSSIBNLE NEED FOR XRAY.
--- NOTE | 2020-02-02 10:07 | NUR ---
DR HALL REPORTED BY NOC SHIFT TAHT PT WAS NPO FOR POSSIBLE CARDIOVERSION. CALLED DR HALL TO CLARIFY. DR HALL SAAYS NO CARDIOVERSION TODAY. CONTINUE POT.
--- NOTE | 2020-02-02 10:08 | NUR ---
ABD PAIN CALLED DR HURD D/T PT COMPLAINT OF SEVERE ABD PAIN. PT CURLED IN A BALL IN BED. WIMPERING. CT ABD DONE AND RESULTED. NO ORDERS. DR HURD WANTED TO CHECK CT FIRST. CONTINUE POT.
--- NOTE | 2020-02-02 18:06 | NUR ---
EVENING NOTE PT ALERT AND ORIENTED X3. AFIB. AMIODORONE GTT ALMOST COMPLETE. INFUSING AT 16.7 ML/HR. RATE WELL CONTROLLED. PT BP TOLERATING METOPOLOL WELL. PT COMPLAINT TODAY IS ABD. CRAMPING. HE HAS HAD 2 BOWEL MOVEMENTS TODAY. TALKED WITH DR HURD ABOUT A ONE TIME DOSE OF PAIN MEDICATION. FENTAYL 25 MCG DIDN'T REALLY HELP WITH THE ABD CRAMPING. PT UP WALKING IN HALLWAY WITH LIFE VEST ON. TOLERATED WELL. KPAD APPLIED TO ABD TO HELP ABD CRAMPING. MULTIPLE BOWEL CARE MEDICATIONS GIVEN. VSS. USING CALL LIGHT. CALL LIGHT WITH IN REACH. BED IN LOW POSITION. PT WEARING SKID SOCKS. CONTINUE POT.
[2020-02-02 19:18] LABS: BASOPHILS ABSOLUTE AUTO 0.04 K/mm3 (0.00-0.23); BASOPHILS PERCENT AUTO 0 % (0-2); EOSINOPHILS ABSOLUTE AUTO 0.01 K/mm3 (0.00-0.68); EOSINOPHILS PERCENT AUTO 0 % (0-6); Hemoglobin 14.9 g/dL (13.5-17.5); IMMATURE GRAN ABSOLUTE AUTO 0.14 K/mm3 (0.00-0.10); IMMATURE GRAN PERCENT AUTO 1 % (0-1); LYMPHOCYTES ABSOLUTE AUTO 2.24 K/mm3 (0.84-5.20); LYMPHOCYTES PERCENT AUTO 13 % (21-46); MONOCYTES ABSOLUTE AUTO 2.14 K/mm3 (0.16-1.47); MONOCYTES PERCENT AUTO 12 % (4-13); Mean Corpuscular HGB 30.5 pg (26.0-34.0); Mean Corpuscular HGB Conc 32.4 g/dL (31.5-36.5); Mean Corpuscular Volume 94 fL (80-100); Mean Platelet Volume 10.1 fL (9.1-12.4); NEUTROPHILS ABSOLUTE AUTO 12.72 K/mm3 (1.96-9.15); NEUTROPHILS PERCENT AUTO 74 % (41-73); NRBC ABSOLUTE 0.07 K/mm3 (0.00-0.02); NRBC Auto 0.4 /100 WBC (0.0-0.2); Platelet Count 276 K/mm3 (150-400); RDW Standard Deviation 44.3 fL (35.1-46.3); Red Blood Cell Count 4.88 M/mm3 (4.30-5.90); White Blood Cell Count 17.29 K/mm3 (4.00-11.30)
[2020-02-02 20:05] LABS: Albumin, Blood 3.5 g/dL (3.4-5.0); Albumin/Globulin Ratio 0.8 (0.8-1.8); Bilirubin, Total 1.9 mg/dL (0.1-1.0); Bun/Creatinine Ratio 17.7 (12.0-20.0); Creatinine, Blood 2.77 mg/dL (0.60-1.20); Globulin, Blood 4.6 g/dL (2.2-4.0); Potassium, Blood 4.4 mmol/L (3.5-5.5); Total Protein, Blood 8.1 g/dL (6.4-8.2)
--- NOTE | 2020-02-02 23:20 | NUR ---
PATIENT ARRIVED TO ICU 1 FROM PCU VIA BED POST CODE BLUE. PATIENT AWAKE A&O X3. PATIENT TRANSFERRED TO ICU BED USING SLIDER SHEET, AND PLACED ON ICU MONITORS. LIFE VEST REMOVED DUE TO IT BEING WET FROM HEATING PAD LEAKING ONTO THE BED. WHILE GETTING PATIENT SETTLED PATIENTS RHYTHM CHANGED TO V-TACH PATIENT REMAINING AWAKE. AFTER ONE SHOCK OF 150 JOULES AT 2335 PATIENT RETURNED TO SINUS RHYTHM. DOCTOR RODRIGUEZ AT BEDSIDE, AMIODARONE BOLUS AND DRIP STARTED.
[2020-02-02 23:48] LABS: Albumin, Blood 3.7 g/dL (3.4-5.0); Albumin/Globulin Ratio 0.9 (0.8-1.8); Bilirubin, Total 2.7 mg/dL (0.1-1.0); Bun/Creatinine Ratio 17.6 (12.0-20.0); Calcium, Blood 8.7 mg/dL (8.5-10.1); Creatinine, Blood 3.06 mg/dL (0.60-1.20); Globulin, Blood 4.3 g/dL (2.2-4.0); Magnesium, Blood 2.9 mg/dL (1.6-2.4); Potassium, Blood 4.5 mmol/L (3.5-5.5); Troponin I 0.096 ng/mL (0.000-0.040)
--- NOTE | 2020-02-02 23:53 | NUR ---
TRANSFER TO ICU BEGINNING OF SHIFT, P PRESENTS WITH CVONTINUED SEVERE ABD PAIN. PATIENT TALKIGN WITH THIS RN BUT NOTABLY MUCH WEAKER AND LESS TALKATIVE THAN LAST SHIFT. AT THIS POINT, AMIODORONE GTT INFUSING BUT ENDED PER PROTOCOL. PT'S HR CONTROLED, BP STABLE, AND PT AFEBRILE. LABS DRAW, LACTIC ACID RETURNED CRITICAL AT 4.6, EFREN ASSURANCE SENIOR MANAGER CALED EGARDIG THIS, 1000ML BOLUS COMPLETED, THEN FLUIDS CONTINUED AT 150ML/HR. Q1HR VS STABLE WITH SOME HOTN. RELEX LACTIC REDRAWN, DECREASES TO 4.5. EFREN ASSURANCE SENIOR MANAGER TO ROOM. AT THIS POINT, THE CT W/ CONTRAST TO ABD/PELVIS WAS DC'D DUE TO NEW LABS SHOWING SEVRELY DECREASED RENAL FUNCTION. VSS CONTINUED TO BE STABLE. THIS RN OUT OF ROOM. 2300, PT GOES INTO VTACH, FANCY STITCHER TO ROOM, LIFE VEST WAS IN PLACE, PT BREATHIG WITH PULSE AT THIS POINT. 2302, PT HR TO 35, PT STOPPED BREATHING AND WAS WITHOUT PULSE. CPR INITIATED AND CODE CALLED. ICU STAFF/ER STAFF/ AND PCU STQAFF TO ROOM. DEFIB PADS PLACED AND BACKBOARD IN PLACE WITH CONTINUED CPR. LABS DRAWN. CBG CHCKED, 62, D50 ADMINISTERED. PT BECOMES RESPONSIVE AND TALKING POST COMPRESSIONS. ORDERS TO TRANSFER TO ICU RECEIVED. PT TRANSPORTED AND TRANSFERRED TO NEW BED. PT THEN DEFIBRILLATED UPON CONVERTING TO VTACH. MULTIPLE RN'S/PHYSICIANS IN ROOM. AT THIS POINT, THIS RN GAVE REPORT TO SUPERVISOR SPECIAL SERVICES BENITA. PT FAMILY CALLED AND UPDATED. PT BELONGINGS TO BE COLLECTED AND BROUGHT BACK TO ICU.
[2020-02-03 04:45] LABS: BASOPHILS ABSOLUTE AUTO 0.03 K/mm3 (0.00-0.23); BASOPHILS PERCENT AUTO 0 % (0-2); EOSINOPHILS ABSOLUTE AUTO 0.01 K/mm3 (0.00-0.68); EOSINOPHILS PERCENT AUTO 0 % (0-6); Hematocrit 45.3 % (37.0-53.0); Hemoglobin 14.6 g/dL (13.5-17.5); IMMATURE GRAN ABSOLUTE AUTO 0.15 K/mm3 (0.00-0.10); IMMATURE GRAN PERCENT AUTO 1 % (0-1); LYMPHOCYTES ABSOLUTE AUTO 1.06 K/mm3 (0.84-5.20); LYMPHOCYTES PERCENT AUTO 6 % (21-46); MONOCYTES ABSOLUTE AUTO 1.66 K/mm3 (0.16-1.47); MONOCYTES PERCENT AUTO 9 % (4-13); Mean Corpuscular HGB 30.9 pg (26.0-34.0); Mean Corpuscular HGB Conc 32.2 g/dL (31.5-36.5); Mean Corpuscular Volume 96 fL (80-100); Mean Platelet Volume 10.5 fL (9.1-12.4); NEUTROPHILS ABSOLUTE AUTO 15.64 K/mm3 (1.96-9.15); NEUTROPHILS PERCENT AUTO 84 % (41-73); NRBC ABSOLUTE 0.05 K/mm3 (0.00-0.02); NRBC Auto 0.3 /100 WBC (0.0-0.2); Platelet Count 282 K/mm3 (150-400); RDW Standard Deviation 45.1 fL (35.1-46.3); Red Blood Cell Count 4.73 M/mm3 (4.30-5.90); White Blood Cell Count 18.55 K/mm3 (4.00-11.30)
[2020-02-03 05:34] LABS: Albumin, Blood 3.4 g/dL (3.4-5.0); Albumin/Globulin Ratio 0.8 (0.8-1.8); Bilirubin, Total 3.1 mg/dL (0.1-1.0); Bun/Creatinine Ratio 18.2 (12.0-20.0); Calcium, Blood 8.4 mg/dL (8.5-10.1); Creatinine, Blood 3.13 mg/dL (0.60-1.20); Globulin, Blood 4.1 g/dL (2.2-4.0); Potassium, Blood 4.7 mmol/L (3.5-5.5); Total Protein, Blood 7.5 g/dL (6.4-8.2)
--- NOTE | 2020-02-03 06:30 | NUR ---
SUMMARY PATIENT TRANSFERRED TO ICU AT APROX 2300 TONIGHT POST CODE BLUE IN PCU, REQUIRING CHEST COMPRESSIONS. AFTER ARRIVING TO ICU PATIENT AGAIN WENT INTO VTACH REQUIRING ONE SHOCK CONVERTING TO SINUS RHYTHM. AMIODARONE DRIP INFUSING DOWN TO 0.5MG/MIN AT 0600. NO FURTHER ECTOPY SEEN. ZOLL REMAINS IN PLACE ON MONITOR. PATIENT C/O MID CHEST PAIN WITH GOOD PAIN RELIEF WITH FENTANYL. PATIENT ABLE TO SIT ON SIDE OF BED TO VOID WITH MOD ASSISTANCE, PATIENT REMINDED TO CALL FOR ASSISTANCE DUE TO LINES AND CORDS.
[2020-02-03 10:10] LABS: Phosphorus, Blood 5.7 mg/dL (2.5-4.9); Troponin I 0.111 ng/mL (0.000-0.040)
--- NOTE | 2020-02-03 18:55 | NUR ---
REPORT BEDSIDE REPORT RECEIVED FROM SANDEEP BRYANT. LABS REVIEWED, HX REVIEWED, AND MEDICATIONS VIEWED. PT RESTING IN BED, REQUESTS ICE CHIPS, AND FAN TO CIRCULATE AIR IN ROOM- ADJUSTED FOR PT COMFORT. RT IJ SLed. O2 @5L/NC. ZOLL MONITOR IN PLACE & REVIEWED. VS WNL CURRENTLY. WIPE BOARD UPDATED FOR PT. DISCUSSED LIFE VEST AND ALL COMPONENTS PLACED IN PT ROOM. THIS RN TO ASSUME CARE AT THIS TIME.
--- NOTE | 2020-02-03 19:17 | NUR ---
Mr. Green was very tired and unable to stay awake long. He accepted prayer. No family present. I will remain available.
--- NOTE | 2020-02-03 21:10 | NUR ---
BEDSIDE REPORT TAKEN AT 0700. PT WAS SLEEPING BUT AROUSED TO VOICE. PT ALERT AND ORIENTED. WHEN ASKED, PT C/O CHEST PAIN 6/10; WORSE W COUGH 2ND TO CPR/SHOCK. PT ON 5L N/C. AMIODARONE GTT AT 0.5 TO R IJ. ABD SOFT AND NON-TENDER WITH HYPOACTIVE BT'S. PT STATED HIS ABD NO LONGER HURT. DR GENAO CALLED AT 0800; FULL UPDATE GIVEN. ORDERS TO CALL DR IF ABD SYMPTOMS REOCCURRED OR WORSENED. PT TOLERATING SMALL AMT OF ICE CHIPS. PT DUSKY/PAULSON, SKIN COOL AND DIAPHORETIC. DR RALPH IN AT 0830 TO SEE PT. PLANS FOR ICD IN 2 DAYS PT HAS XARELTO 24 HRS AGO. ZOLL AT BEDSIDE ON MONITOR; PADS PLACED FRONT AND BACK. PT IN SINUS RHTHYM; BP STABLE. AT 0914 PT MEDICATED W FENT FOR CHEST PAIN. DR CRUZ IN TO SEE PT AT 0920. AROUND 1000 PT ATTEMPTED TO SIT AT EDGE OF BED TO VOID. PT VERY DUSKY/PAULSON, DIAPHORETIC, AND SOB. BIPAP ORDERED. PT TOLERATED BIPAP WELL FOR ENTIRE SHIFT. PT TOLERATED BREAKS OFF BIPAP WITH O2 AT 5L. SM AMT OF ICE CHIPS GIVEN T/O SHIFT. AT 1458 AMIO GTT DC'D PT WAS STARTED ON AMIO PO PER DR RALPH. SKIN COLOR AND TEMP MUCH IMPROVED BY MID SHIDT. PT ALSO STATED THAT HE FELT MUCH BETTER AFTER WEARING THE BIPAP. ULTRAM GIVEN FOR LONGER ACTING PAIN RELIEF; PT STATED THIS WORKED WELL FOR HIM WELL. PT ENCOURAGED TO WEAR BIPAP THIS EVENING.
[2020-02-04 03:43] LABS: BASOPHILS ABSOLUTE AUTO 0.03 K/mm3 (0.00-0.23); BASOPHILS PERCENT AUTO 0 % (0-2); EOSINOPHILS ABSOLUTE AUTO 0.01 K/mm3 (0.00-0.68); EOSINOPHILS PERCENT AUTO 0 % (0-6); Hematocrit 40.4 % (37.0-53.0); Hemoglobin 13.2 g/dL (13.5-17.5); IMMATURE GRAN ABSOLUTE AUTO 0.09 K/mm3 (0.00-0.10); IMMATURE GRAN PERCENT AUTO 1 % (0-1); LYMPHOCYTES ABSOLUTE AUTO 1.51 K/mm3 (0.84-5.20); LYMPHOCYTES PERCENT AUTO 10 % (21-46); MONOCYTES PERCENT AUTO 7 % (4-13); Mean Corpuscular HGB 30.8 pg (26.0-34.0); Mean Corpuscular HGB Conc 32.7 g/dL (31.5-36.5); Mean Corpuscular Volume 94 fL (80-100); Mean Platelet Volume 9.9 fL (9.1-12.4); NEUTROPHILS ABSOLUTE AUTO 12.56 K/mm3 (1.96-9.15); NEUTROPHILS PERCENT AUTO 83 % (41-73); Platelet Count 249 K/mm3 (150-400); RDW Coefficient Variation 13.2 % (11.7-14.2); RDW Standard Deviation 44.5 fL (35.1-46.3); Red Blood Cell Count 4.29 M/mm3 (4.30-5.90)
[2020-02-04 04:06] LABS: Albumin, Blood 2.9 g/dL (3.4-5.0); Albumin/Globulin Ratio 0.8 (0.8-1.8); Bilirubin, Total 1.9 mg/dL (0.1-1.0); Calcium, Blood 8.2 mg/dL (8.5-10.1); Creatinine, Blood 1.93 mg/dL (0.60-1.20); Globulin, Blood 3.5 g/dL (2.2-4.0); Magnesium, Blood 2.7 mg/dL (1.6-2.4); Phosphorus, Blood 3.2 mg/dL (2.5-4.9); Potassium, Blood 4.2 mmol/L (3.5-5.5); Total Protein, Blood 6.4 g/dL (6.4-8.2)
--- NOTE | 2020-02-04 05:55 | NUR ---
SHIFT SUMMARY PT RESTING IN BED, A&O X4, PLEASANT, USES CALL LIGHT APPROPRIATELY. PT STATES WAS NOT FEELING WELL YESTERDAY, HAD NAUSEA, WEAKNESS, BS HIGH. PT TO ER AND ADMITTED TO ICU 2 FOR DKA WITH BLOOD SUGAR >500 IN ER. BLOOD SUGAR DOWN FROM 492 TO 370 THIS AM @ 0600. UPON ADMIT PT TRANSFERED SELF FROM COT TO BED WITH SBA, ANSWERS ALL QUESTIONS, C/O PAIN & TYLENOL GIVEN PER ORDER AND COLD AND WARM BLANKETS GIVEN, NS & INSULIN INFUSING PER ORDER. PT REMAINS AFEBRILE, HEART RATE REGULAR, LUNGS CLEAR, BOWEL SOUNDS PRESENT, SKIN WARM, INTACT & DRY, SL TO LT AC AND IVFs INFUSING VIA RT WRIST. PT UP ONCE DURING NIGHT TO VOID AND UA SHOWED 4+ KETONES AND GLUCOSE. INSULIN TITRATED FROM 0.5 TO 1.5 U/HR IN ORDER TO REDUCE BS BY 50-70 PER HOUR STATED IN ORDER. PT STATES FEELS BETTER THIS AM, DENIES PAIN/NAUSEA/WEAKNESS. PT REMAINS NPO. WILL CONTINUE TO MONITOR BS Q1HR. WILL GIVE BEDSIDE REPORT TO DAY SHIFT RN.
--- NOTE | 2020-02-04 06:25 | NUR ---
PT RESTING IN BED, TURNS WITH MIN ASSIST. PT FLAT, COOPERATIVE, ORIENTED X3. PT PLACED ON BIPAP @ 2100 WITH SETTINGS 14/7 FIO2 35%, HAD 3 15 MINUTE BREAKS AND THEN REQUESTED IT BE REMOVED AT 0345. PT REFUSED TO PUT BIPAP BACK ON THIS AM R/T NOSE SORE. PT ALSO C/O PAIN DURING NOC AND GIVEN ULTRAM X1. PT DIET IS NPO /X ICE CHIPS. PT GIVEN ICE CHIPS AND MEDS WITH SIPS. HEART RATE REGULAR 70s, NSR, LUNGS CTA, BOWEL SOUNDS HYPOACTIVE, ABD DISTENDED, SOFT, NONTENDER, DENIES NAUSEA. PT SKIN WARM, MOIST AT TIMES, AND TEMP REMAINS LOW THIS SHIFT. PT HAS FAN BLOWING ON HIM MOST OF THE NIGHT R/T "HOT". BRUISE TO RT LEG. PILLOW CASES AND QUILTED PAD CHANGED NEEDED WHEN WET. VS WNL /X TEMP. WILL CONTINUE TO MONITOR PT REST OF SHIFT. BEDSIDE REPORT WILL BE GIVEN TO DAY SHIFT RN.
--- NOTE | 2020-02-04 10:17 | NUR ---
BEDSIDE REPORT TAKEN AT 0700. PT SLEEPING AROUSES TO VOICE. STATES HE FEELS MUCH BETTER TODAY. STATES CHEST PAIN IS IMPROVED AT A 2/10. PT GRIMACES WHILE MOVING HIMSELF IN BED AND MOANS, ULTRAM GIVEN FOR DISCOMFORT. PT REMAINS ATTATCHED TO ZOLL; MONITOR ON. PT IN SINUS RHTHYM, BP STABLE. PT'S SKIN COLOR IS MUCH IMPROVED FROM YESTERDAY BUT REMAINS DIAPHORETIC AT TIMES. PT SOB WITH ANY EXERTION. PT IS HOPING HIS DIET WILL BE ADVANCED TODAY.
--- NOTE | 2020-02-04 12:27 | NUR ---
Pastoral visit made and offered prayers for the pt.
--- NOTE | 2020-02-04 12:33 | NUR ---
DR RALPH IN TO SEE PT. PT CONSENTED FOR AICD PLANNED FOR MONDAY. ZOLL REMOVED. PT TO BE OOB TO CHAIR TOLERATED. WILL CALL DR HURD FOR DIET ORDERS.
--- NOTE | 2020-02-04 17:28 | NUR ---
PT SBA TO CHAIR AFTER DR RALPH LEFT THIS AM. PT ABLE TO TRANSFER WELL, AND TOLERATED BEING UP IN CHAIR. ACTIVITY TOLERANCE IMPROVED. SATS 99% ON RA, PT DENIES SOB. PAIN TO CHEST 2/[address] HURD CALLED AND GIVEN FULL UPDATE. PT CHANGED TO PCU STATUS, DIET ORDERED TOLERATED/CARDIAC. PT ATE APPLESAUCE AND ALIS WELL. PT THEN ATE APPLE "TOO QUICKLY" AND VOMITED SMALL AMT AFTERWARDS. ZOFRAN GIVEN W GOOD RELIEF. WILL GIVE PT JUST CLEAR LIQUID TRAY FOR NEXT SNACK/MEAL. ZOLL TO BE LEFT AT BEDSIDE. REPORT GIVEN TO TARUN HOPKINS AT 1520. PT TRANSFERED TO PCU 7 IN STABLE CONDITION.
--- NOTE | 2020-02-04 17:56 | NUR ---
MARIA T NDIAYE [facility] SA[facility] PT AND IN DISCUSSION WITH NIURKA//PT, MARIA T TOOK THE LIFEVEST WITH HER. HOSPITAL NIURKA REMAINS AT BEDSIDE PER MD'S ORDER.
--- NOTE | 2020-02-04 18:42 | NUR ---
PT WAS TRANSFERRED FROM ICU THIS EVENING. PT DENIES ANY CP/SHORTNESS OF BREATH AND IS ON ROOM AIR. VITALS ARE STABLE AND TELEMETRY SHOWS PT TO BE IN SINUS RHYTHM. RIJ CENTRAL LINE IN PLACE AND SALINE LOCKED. AICD PLANNED PLACEMENT TO BE ON MONDAY AT THIS TIME. HOSPITAL ZOLL REMAINS AT BEDSIDE PER DR'S ORDERS.
[2020-02-05 04:12] LABS: BASOPHILS ABSOLUTE AUTO 0.03 K/mm3 (0.00-0.23); BASOPHILS PERCENT AUTO 0 % (0-2); EOSINOPHILS ABSOLUTE AUTO 0.08 K/mm3 (0.00-0.68); EOSINOPHILS PERCENT AUTO 1 % (0-6); Hematocrit 41.1 % (37.0-53.0); IMMATURE GRAN ABSOLUTE AUTO 0.04 K/mm3 (0.00-0.10); IMMATURE GRAN PERCENT AUTO 0 % (0-1); LYMPHOCYTES ABSOLUTE AUTO 1.43 K/mm3 (0.84-5.20); LYMPHOCYTES PERCENT AUTO 12 % (21-46); MONOCYTES PERCENT AUTO 8 % (4-13); Mean Corpuscular HGB 30.4 pg (26.0-34.0); Mean Corpuscular HGB Conc 31.6 g/dL (31.5-36.5); Mean Corpuscular Volume 96 fL (80-100); Mean Platelet Volume 9.8 fL (9.1-12.4); NEUTROPHILS ABSOLUTE AUTO 9.75 K/mm3 (1.96-9.15); NEUTROPHILS PERCENT AUTO 79 % (41-73); Platelet Count 275 K/mm3 (150-400); RDW Coefficient Variation 13.1 % (11.7-14.2); RDW Standard Deviation 45.6 fL (35.1-46.3); Red Blood Cell Count 4.28 M/mm3 (4.30-5.90); White Blood Cell Count 12.33 K/mm3 (4.00-11.30)
[2020-02-05 04:35] LABS: Albumin, Blood 3.1 g/dL (3.4-5.0); Albumin/Globulin Ratio 0.9 (0.8-1.8); Bilirubin, Total 1.6 mg/dL (0.1-1.0); Bun/Creatinine Ratio 30.1 (12.0-20.0); Calcium, Blood 8.3 mg/dL (8.5-10.1); Creatinine, Blood 1.36 mg/dL (0.60-1.20); Globulin, Blood 3.5 g/dL (2.2-4.0); Potassium, Blood 4.3 mmol/L (3.5-5.5); Total Protein, Blood 6.6 g/dL (6.4-8.2)
--- NOTE | 2020-02-05 04:38 | NUR ---
SHIFT SUMMARY: PATIENT VSS MAJORITY OF SHIFT, SLEPT WELL. PATIENT HR INCREASED WHEN STANDING TO USE URINAL BUT RECOVERS QUICKLY WHEN PATIENT IS BACK IN BED. ZOLL AT BEDSIDE. APPROX 0440 PATIENT EXPERIENCED A 7 BEAT RUN OF VTACH, ASYMPTOMATIC, MONITORING CLOSELY. BED LOW AND LOCKED, CALL LIGHT WITHIN REACH AND USED APPROPRIATLY.
[2020-02-05 08:41] LABS: International Normalized Ratio 1.48; Prothrombin Time Results 15.5 Sec (9.7-11.5)
--- NOTE | 2020-02-05 10:01 | NUR ---
THIS RN AT BEDSIDE TO TURN IV PUMP OFF WHEN ANTIBIOTIC INFUSION COMPLETE. PT WITH LIGHT SNORING RESPIRATIONS BIOX 86% ON 2L, PT ROUSES EASILY AND BIOX UP TO 93% O2 INCREASED TO 3L WHILE PT SLEEPING AND WILL CONTINUE TO EVALUATE PTS LEVEL OF NEED.
--- NOTE | 2020-02-05 14:15 | NUR ---
PT SLEEPING WHEN ENTERED THE ROOM. C/O FEELING WARM. PT PO MEDICATIONS PROVIDED. PT C/O PAIN LEFT SIDE OF CHEST FROM CPR AND BEING SHOCKED.
--- NOTE | 2020-02-05 14:27 | NUR ---
Pt. is in bed ans in pain encouraged pt. and is doing much better prayed for the pt.
--- NOTE | 2020-02-05 18:51 | NUR ---
SHIFT SUMMARY PT IS A&0X4, VERY PLEASANT TO WORK WITH. PLANNED AICD PLACEMENT TOMORROW WITH DR HALL. PT IS TO HAVE HEPARIN GTT STOPPED AT MIDNIGHT PER DR HALL'S ORDERS. ZOLL MONITOR REMAINS AT BEDSIDE. TELEMETRY HAS SHOWN PT TO BE IN SINUS RHYTHM. PT REQUIRED INCREASE IN O2 WHILE NAPPING TODAY, SAT'S WOULD DROP TO MID 80'S WHEN SLEEPING, ONCE AWAKE, PT WOULD MAINTAIN SPO2 ON ROOM AIR. PROVIDED EDUCATION TO PT ON NOT USING METH ANYMORE. PT STATED TO RN MULTIPLE TIMES THAT HE HAS NO PLANS ON USING METH AGAIN. PT TOLD RN THAT HE RECENTLY MOVED TO THE AREA IN AN ATTEMPT TO START OVER. INFORMED PT ON RISKS AND HEALTH CONCERNS IF METH WAS USED AGAIN.
[2020-02-06 02:30] LABS: Hematocrit 38.5 % (37.0-53.0); Hemoglobin 12.4 g/dL (13.5-17.5); Mean Corpuscular HGB 30.9 pg (26.0-34.0); Mean Corpuscular HGB Conc 32.2 g/dL (31.5-36.5); Mean Corpuscular Volume 96 fL (80-100); Mean Platelet Volume 9.7 fL (9.1-12.4); Platelet Count 262 K/mm3 (150-400); RDW Standard Deviation 45.1 fL (35.1-46.3); Red Blood Cell Count 4.01 M/mm3 (4.30-5.90); White Blood Cell Count 11.37 K/mm3 (4.00-11.30)
[2020-02-06 02:45] LABS: Anion Gap 5 mmol/L (6-16); Blood Urea Nitrogen 28 mg/dL (8-24); Bun/Creatinine Ratio 23.7 (12.0-20.0); CO2, Blood 37 mmol/L (21-32); Calcium, Blood 8.6 mg/dL (8.5-10.1); Chloride, Blood 91 mmol/L (98-108); Creatinine, Blood 1.18 mg/dL (0.60-1.20); Glomerular Filtration Rate >60 (60-); Glucose, Blood 86 mg/dL (70-99); Magnesium, Blood 2.3 mg/dL (1.6-2.4); Potassium, Blood 4.1 mmol/L (3.5-5.5); Sodium, Blood 133 mmol/L (136-145)
--- NOTE | 2020-02-06 05:21 | NUR ---
SHIFT SUMMARY PT SLEEPING IN ROOM COMFORTABLY AT THIS TIME. NO ACUTE CHANGES IN STATUS T/O NIGHT PT HAS SLEPT WELL HEPARIN GTT IS OFF AT THIS TIME FOR AICD PROCEDURE TODAY. HEPARIN GTT WAS ORDERED TO BE STOPPED AT 0000, GTT WAS TURNED OFF LATE. PT ALSO HAD CRITICAL APTT LEVEL REPORTED BY LAB. WILL FOLLOW UP WITH CARDIOILOGIST THIS AM TO UPDATE ON PT CONDITION. PT DENIED ANY CP OR SOB T/O NIGHT. RESP EVEN UNLABORED ON 2L NC W/ SATS >92%. DENIED OTHER NEEDS. CALL LIGHT IN REACH.
--- NOTE | 2020-02-06 06:13 | NUR ---
FLUORESCENT LAMP REPLACER CALLED CALLED TO INFORM CARDIOILOGIST ABOUT CRITICAL HIGH APTT AND ABOUT HEPERAIN BEING STOPPED LATE. PROVIDER REPORTED MAY DELAY PROCEDURE TODAY. WILL PASS ON TO DAY SHIFT RN. AND YEAST PUMPER.
--- NOTE | 2020-02-06 07:26 | NUR ---
CARE ASSUMED/URGENT CARE NURSE PRACTITIONER PLAN REPORT RECEIVED, CARE ASSUMED AT 0700 FROM SANDEEP BARLOW. NOTIFIED BY CLAU IN [facility] THAT PT WILL NEED STAT PTT LAB DRAW AND THEN PLAN FOR URGENT CARE NURSE PRACTITIONER WILL BE REASSESSED AFTER RESULTS ARE BACK. PT UPDATED AND AGREEABLE. ALERT AND ORIENTED, BUT FORGETFUL. REQUESTING WATER BUT REMINDED OF NPO STATUS FOR PROCEDURE AND PATIENT IS AGREEABLE. 02 SAT 90'S ON 2 LPM NASAL CANNULA. BP STABLE. PT AFEBRILE. HR 70'S, NORMAL SINUS RHYTHM. PT DENIES CHEST PAIN, SOB OR DIZZINESS AT THIS TIME. AGREES TO CALL FOR NEEDS, INCLUDING TO STAND UP AND USE URINAL. CALL LIGHT IN REACH.
--- NOTE | 2020-02-06 08:32 | NUR ---
PT TO OFFICE RUNNER PT TO OFFICE RUNNER WITH OFFICE RUNNER STAFF. CADIAC MEDS NOT GIVEN PRIOR TO PT LEAVING ROOM, CALLED CONTROL ROOM AND MADE STAFF AWARE.
--- NOTE | 2020-02-06 12:18 | NUR ---
Met pt. in bed and his nurse in the room attending to the needs of pt, and pt. reports doing fine and much trent.
--- NOTE | 2020-02-06 12:35 | NUR ---
UPDATE PT BACK FROM DIRECTOR OF TECHNOLOGY, ALERT AND ORIENTED. VITALS STABLE. PRESSURE DRESSING TO AICD SITE C/D/I. PT EDUCATED EXTENSIVELY, BUT SOMEWHAT FORGETFUL REGARDING PRECAUTIONS. SLING PLACED ON PATIENT. SETUP ASSIST FOR LUNCH, PT HAS HAD GOOD APPITITE AND REPORTS, "I FEEL SO MUCH BETTER."
--- NOTE | 2020-02-06 16:30 | NUR ---
SUMMARY SINCE PREVIOUS NOTE, PT HAS BEEN NAPPING ON AND OFF, CALLING APPROPRIATELY FOR NEEDS. RECEPTIVE TO EDUCATION REGARDING PACEMAKER PRECAUTIONS, BUT FORGETFUL. SLING IN PLACE. VITALS STABLE. REPORT TO SANDEEP MONROE TO ASSUME CARE AT THIS TIME.
[2020-02-07 04:31] LABS: Anion Gap 4 mmol/L (6-16); Blood Urea Nitrogen 22 mg/dL (8-24); Bun/Creatinine Ratio 17.6 (12.0-20.0); CO2, Blood 37 mmol/L (21-32); Calcium, Blood 8.6 mg/dL (8.5-10.1); Chloride, Blood 93 mmol/L (98-108); Creatinine, Blood 1.25 mg/dL (0.60-1.20); Glomerular Filtration Rate >60 (60-); Glucose, Blood 114 mg/dL (70-99); Potassium, Blood 3.8 mmol/L (3.5-5.5); Sodium, Blood 134 mmol/L (136-145)
--- NOTE | 2020-02-07 05:06 | NUR ---
SHIFT SUMMARY PT SLEEPING IN ROOM COMFORTABLY AT THIS TIME. NO ACUTE CHANGES IN STATUS T/O NIGHT. PT SLEPT WELL. RESP EVEN UNLABORED ON 3L 02 VIA NC, WHILE SLEEPING, SATS >92%. DENIED CP, DID REPORT SOME TENDERNESS TO AICD SITE. PT WAS IVEN ICE PACK EARLY IN SHIFT FOR PAIN. REPORTED BETTER. PT DENIED OTHER NEEDS. CALL LIGHT IN REACH.
--- NOTE | 2020-02-07 07:30 | NUR ---
AM NOTE... ASSUMED CARE OF PT APROX 0700, PT IS A&Ox4. PT IS S/P AICD PLACEMENT ON 02/05. NO EVENTS NOTED ON TELE SINCE PLACEMENT. DRESSING WAS CHANGED BY PROVIDER THIS AM, NEW DRESSING IS C/D/I. DISCHARGE EDUCATION AND SITE CARE EDUCATION WAS GIVEN VERBALLY AND WRITTEN TO THE PT. PT'S QUESTIONS WERE ANSWERED AND HE VERBALIZED HIS UNDERSTANDING. PT'S VS STABLE AT THIS TIME. L/S CLEAR IN THE UPPER COARSENESS NOTED IN THE BASES. BT PRESNENT AND NORMOACTIVE. ABD SOFT AND NONTENDER TO PALP. CALL LIGHT IN REACH WILL CONTINUE TO MONITOR.
[2020-02-07] MEDS ORDERED: TORSE20 PO (11:25)
[2020-02-07] MEDS ORDERED: METO25ER PO (11:26)
[2020-02-07] MEDS ORDERED: AMIODARONE HCL200 M1 PO (11:27)
[2020-02-07] MEDS ORDERED: LACT PO (11:28)
[2020-02-07] MEDS ORDERED: Isosorbide Mono30 MG PO (11:28)
[2020-02-07] MEDS ORDERED: LOSA25 PO (11:29)
[2020-02-07] MEDS ORDERED: TRAM50 PO (11:30)
[2020-02-07] MEDS ORDERED: MIRALAX17 G1 PO (11:30)
[2020-02-07] MEDS ORDERED: XARELTO20 MG PO (11:30)
--- NOTE | 2020-02-07 11:57 | NUR ---
Spiritual care visit conducted. Patient is roaming the halls thanking staff members for all the help and telling them that he is going home today. Patient stops me and thanks me for the time, spiritual encouragement and care. I listen empathically and celebrate with patient on the DC.
--- NOTE | 2020-02-07 12:20 | NUR ---
PT D/C... PT D/C HOME. AICD DRESSING WAS C/D/I AT THE TIME OF DISCHARGE. DISCHARGE MEDICATION EDUCAITION AND POST-OP EDUCATION FOR AICD SITE WAS GIVEN TO PT IN WRITTEN AND VERBAL FORM. ALL OF PT'S QUESTIONS ANSWERED TO PT'S SATISFACTION AND PT VERBALIZED HIS UNDERSTANDING OF INSTRUCTIONS. ALL OF PT'S BELONGINGS PACKED AND SENT WITH THE PT. NEW MEDICATIONS FAXED TO PT'S PHARMACY OF CHOICE. IV WAS REMOVED BY ALFONZO HOPKINS WNL. PT WAS TAKEN TO OUTSIDE DOOR VIA W/C.
== END 2020-02-07 12:22 | disposition home or self-care (01) | DRG 226 ==
LOC: ER 10:58 → ICUW 15:03 → ICUE 15:03 → PCU 15:03 → ICUW 15:37 → PCU 01-29 00:59 → MEDS 01-31 18:30 → PCU 02-01 17:11 → ICUE 02-02 23:23 → PCU 02-04 16:33
PROVIDERS: Emergency Medicine; Hospitalist; Internal Medicine; Internal Medicine Cardiovascular Disease; Internal Medicine Pulmonary Disease; Nurse Practitioner Acute Care; Pharmacist; ADMIT Family Medicine
PROC: 5A2204Z Restoration of Cardiac Rhythm, Single (ICD-10-PCS; principal; 2020-01-26)
PROC: 06HY33Z Insertion of Infusion Device into Lower Vein, Percutaneous Approach (ICD-10-PCS; 2020-01-27)
PROC: 5A02115 Assistance with Cardiac Output using Pulsatile Compression, Intermittent (ICD-10-PCS; 2020-02-02)
PROC: 05HM33Z Insertion of Infusion Device into Right Internal Jugular Vein, Percutaneous Approach (ICD-10-PCS; 2020-02-03)
PROC: B543ZZA Ultrasonography of Right Jugular Veins, Guidance (ICD-10-PCS; 2020-02-03)
PROC: 0JH608Z Insertion of Defibrillator Generator into Chest Subcutaneous Tissue and Fascia, Open Approach (ICD-10-PCS; 2020-02-06)
PROC: 02HK3KZ Insertion of Defibrillator Lead into Right Ventricle, Percutaneous Approach (ICD-10-PCS; 2020-02-06)
DX: I21.A1 Myocardial infarction type 2 (principal); R57.0 Cardiogenic shock; K72.00 Acute and subacute hepatic failure without coma; I50.23 Acute on chronic systolic (congestive) heart failure; I46.9 Cardiac arrest, cause unspecified; J96.01 Acute respiratory failure with hypoxia; I42.8 Other cardiomyopathies; I13.0 Hypertensive heart and chronic kidney disease with heart failure and stage 1 through stage 4 chronic kidney disease, or unspecified chronic kidney disease; E87.2 Acidosis; N30.00 Acute cystitis without hematuria; E87.1 Hypo-osmolality and hyponatremia; I95.9 Hypotension, unspecified; I48.0 Paroxysmal atrial fibrillation; N18.3 Chronic kidney disease, stage 3 (moderate); F19.10 Other psychoactive substance abuse, uncomplicated; R74.0 Nonspecific elevation of levels of transaminase and lactic acid dehydrogenase [LDH]; J44.9 Chronic obstructive pulmonary disease, unspecified; Z79.82 Long term (current) use of aspirin; K59.00 Constipation, unspecified; E83.39 Other disorders of phosphorus metabolism
CPT/HCPCS: 0099U; 33249; 36415; 36556; 51702; 71045; 71046; 74176; 76937; 80048; 80053; 80061; 81001; 82803; 82947; 83605; 83690; 83735; 83880; 84100; 84145; 84443; 84450; 84460; 84484; 85007; 85025; 85027; 85610; 85730; 86850; 86900; 86901; 87040; 87070; 87076; 87205; 92950; 93005; 93010; 94660; 94761; 94762; 96365-59; 96375-59; 96376-59; 99152; 99153; 99285-25; A9270-GY; C1722; C1751; C1895; C8929; J0282; J0690; J0696; J1250; J1644; J1940; J2250; J2405; J2704; J3010; J7030; J7040; J7050; J7060; Q9957

== ENCOUNTER → 2020-10-01 | Outpatient (CLI) | payer OTHER ==
[~2020-10-01] MED LIST changes: +AMIODARONE HCL200 M1 PO; +Colace100 MG PO; +Isosorbide Mono30 MG PO; +LACT PO; +LOSA25 PO; +METO25ER PO; +MIRALAX17 G1 PO; +TORSE20 PO; +TRAM50 PO; +XARELTO20 MG PO
[2020-10-01 18:05] LABS: BASOPHILS ABSOLUTE AUTO 0.05 K/mm3 (0.00-0.23); BASOPHILS PERCENT AUTO 1 % (0-2); EOSINOPHILS ABSOLUTE AUTO 0.38 K/mm3 (0.00-0.68); EOSINOPHILS PERCENT AUTO 4 % (0-6); Hematocrit 44.7 % (37.0-53.0); Hemoglobin 14.3 g/dL (13.5-17.5); IMMATURE GRAN ABSOLUTE AUTO 0.01 K/mm3 (0.00-0.10); IMMATURE GRAN PERCENT AUTO 0 % (0-1); LYMPHOCYTES PERCENT AUTO 21 % (21-46); MONOCYTES ABSOLUTE AUTO 0.94 K/mm3 (0.16-1.47); MONOCYTES PERCENT AUTO 11 % (4-13); Mean Corpuscular HGB 30.2 pg (26.0-34.0); Mean Corpuscular Volume 95 fL (80-100); Mean Platelet Volume 9.5 fL (9.1-12.4); NEUTROPHILS ABSOLUTE AUTO 5.41 K/mm3 (1.96-9.15); NEUTROPHILS PERCENT AUTO 63 % (41-73); Platelet Count 326 K/mm3 (150-400); RDW Coefficient Variation 12.1 % (11.7-14.2); RDW Standard Deviation 42.5 fL (35.1-46.3); Red Blood Cell Count 4.73 M/mm3 (4.30-5.90); White Blood Cell Count 8.59 K/mm3 (4.00-11.30)
[2020-10-01 21:53] LABS: Alanine Aminotransfer (ALT/SGP 31 U/L (12-78); Albumin, Blood 3.7 g/dL (3.4-5.0); Albumin/Globulin Ratio 0.9 (0.8-1.8); Alk Phos 73 U/L (50-136); Anion Gap 3 mmol/L (6-16); Aspartate Aminotrans (AST/SGOT 16 U/L (12-37); Bilirubin, Total 0.5 mg/dL (0.1-1.0); Blood Urea Nitrogen 15 mg/dL (8-24); Bun/Creatinine Ratio 12.4 (12.0-20.0); CHOL/HDL RATIO 5.7; CO2, Blood 34 mmol/L (21-32); Calcium, Blood 8.7 mg/dL (8.5-10.1); Chloride, Blood 103 mmol/L (98-108); Cholesterol 256 mg/dL (50-200); Creatinine, Blood 1.21 mg/dL (0.60-1.20); Globulin, Blood 3.9 g/dL (2.2-4.0); Glomerular Filtration Rate >60 (60-); Glucose, Blood 100 mg/dL (70-99); HDL Cholesterol 45 mg/dL (>39); LDL/HDL RATIO Unable to Calculate; Low Density Lipoprotein Chol Unable to Calculate mg/dL (0-110); Potassium, Blood 3.9 mmol/L (3.5-5.5); Sodium, Blood 140 mmol/L (136-145); Thyroid Stimulating Hormone 0.914 uIU/mL (0.360-4.800); Total Protein, Blood 7.6 g/dL (6.4-8.2); Triglycerides 468 mg/dL (30-160); Very Low Density Lipoprot Chol Unable to Calculate mg/dL (6-32)
== END | disposition home or self-care (01) ==
LOC: LAB 16:54 → LAB SHORT 16:54
PROVIDERS: Nurse Practitioner Family
DX: Z13.220 Encounter for screening for lipoid disorders (principal); I48.91 Unspecified atrial fibrillation
CPT/HCPCS: 80053; 80061; 84443; 85025

== ENCOUNTER → 2020-11-23 | Outpatient (CLI) | payer OTHER ==
[~2020-11-23] MED LIST changes: +ATOR20 PO; +CENTRUM SILVER1 EAC2 PO; +MECL25 PO; +SYMBICORT 160-4.6 GM
[2020-11-23 18:14] LABS: BASOPHILS ABSOLUTE AUTO 0.04 K/mm3 (0.00-0.23); BASOPHILS PERCENT AUTO 1 % (0-2); EOSINOPHILS ABSOLUTE AUTO 0.27 K/mm3 (0.00-0.68); EOSINOPHILS PERCENT AUTO 3 % (0-6); Hematocrit 42.8 % (37.0-53.0); Hemoglobin 14.1 g/dL (13.5-17.5); IMMATURE GRAN ABSOLUTE AUTO 0.02 K/mm3 (0.00-0.10); IMMATURE GRAN PERCENT AUTO 0 % (0-1); LYMPHOCYTES ABSOLUTE AUTO 1.82 K/mm3 (0.84-5.20); LYMPHOCYTES PERCENT AUTO 22 % (21-46); MONOCYTES ABSOLUTE AUTO 0.74 K/mm3 (0.16-1.47); MONOCYTES PERCENT AUTO 9 % (4-13); Mean Corpuscular HGB 30.6 pg (26.0-34.0); Mean Corpuscular HGB Conc 32.9 g/dL (31.5-36.5); Mean Corpuscular Volume 93 fL (80-100); Mean Platelet Volume 9.8 fL (9.1-12.4); NEUTROPHILS ABSOLUTE AUTO 5.49 K/mm3 (1.96-9.15); NEUTROPHILS PERCENT AUTO 66 % (41-73); Platelet Count 254 K/mm3 (150-400); RDW Coefficient Variation 12.1 % (11.7-14.2); RDW Standard Deviation 41.4 fL (35.1-46.3); Red Blood Cell Count 4.61 M/mm3 (4.30-5.90); White Blood Cell Count 8.38 K/mm3 (4.00-11.30)
[2020-11-23 19:16] LABS: Alanine Aminotransfer (ALT/SGP 36 U/L (12-78); Albumin, Blood 3.9 g/dL (3.4-5.0); Albumin/Globulin Ratio 1.1 (0.8-1.8); Alk Phos 65 U/L (50-136); Anion Gap 7 mmol/L (6-16); Aspartate Aminotrans (AST/SGOT 24 U/L (12-37); Bilirubin, Total 0.8 mg/dL (0.1-1.0); Blood Urea Nitrogen 21 mg/dL (8-24); CO2, Blood 28 mmol/L (21-32); Chloride, Blood 101 mmol/L (98-108); Cholesterol 173 mg/dL (50-200); Globulin, Blood 3.6 g/dL (2.2-4.0); Glomerular Filtration Rate 51 (60-); Glucose, Blood 87 mg/dL (70-99); HDL Cholesterol 57 mg/dL (>39); LDL/HDL RATIO 1.3; Low Density Lipoprotein Chol 77 mg/dL (0-110); Potassium, Blood 3.7 mmol/L (3.5-5.5); Sodium, Blood 136 mmol/L (136-145); Total Protein, Blood 7.5 g/dL (6.4-8.2); Triglycerides 196 mg/dL (30-160); Very Low Density Lipoprot Chol 39 mg/dL (6-32)
[2020-11-24 08:10] LABS: HIV SCREEN 4TH GENERATION WRFX Non Reactive (Non Reactive)
== END ==
LOC: LAB SHORT 17:20 → LAB 17:20
PROVIDERS: Nurse Practitioner Family
DX: Z11.4 Encounter for screening for human immunodeficiency virus [HIV] (principal); E78.5 Hyperlipidemia, unspecified
CPT/HCPCS: 80053; 80061; 85025; 87389

== ENCOUNTER 2021-01-15 04:10 | Observation (INO) | payer OTHER ==
[~2021-01-15] VITALS: Ht 175.3 cm; Wt 96.2 kg
[~2021-01-15 04:10] MED LIST changes: -ATOR20 PO; -CENTRUM SILVER1 EAC2 PO; -MECL25 PO; -SYMBICORT 160-4.6 GM
[2021-01-15 04:30] LABS: Calcium, Ionized (POC) 1.09 mmol/L (1.10-1.46); Chloride (POC) 96 mmol/L (98-108); Creatinine (POC) 1.6 mg/dL (0.8-1.3); Glucose (ISTAT POC) 156 mg/dL (70-99); Hemoglobin (POC) 13.9 g/dL (13.5-17.5); Potassium (POC) 3.2 mmol/L (3.5-5.5); Sodium (POC) 140 mmol/L (135-148); Total CO2 (POC) 35 mmol/L (21-32)
[2021-01-15] MEDS ORDERED: ATOR20 PO (04:31)
[2021-01-15 04:39] LABS: BASOPHILS ABSOLUTE AUTO 0.03 K/mm3 (0.00-0.23); BASOPHILS PERCENT AUTO 0 % (0-2); EOSINOPHILS ABSOLUTE AUTO 0.28 K/mm3 (0.00-0.68); EOSINOPHILS PERCENT AUTO 4 % (0-6); Hematocrit 40.7 % (37.0-53.0); Hemoglobin 13.2 g/dL (13.5-17.5); IMMATURE GRAN ABSOLUTE AUTO 0.01 K/mm3 (0.00-0.10); IMMATURE GRAN PERCENT AUTO 0 % (0-1); LYMPHOCYTES PERCENT AUTO 27 % (21-46); MONOCYTES ABSOLUTE AUTO 0.72 K/mm3 (0.16-1.47); MONOCYTES PERCENT AUTO 9 % (4-13); Mean Corpuscular HGB 30.6 pg (26.0-34.0); Mean Corpuscular HGB Conc 32.4 g/dL (31.5-36.5); Mean Corpuscular Volume 94 fL (80-100); NEUTROPHILS ABSOLUTE AUTO 4.67 K/mm3 (1.96-9.15); NEUTROPHILS PERCENT AUTO 60 % (41-73); Platelet Count 255 K/mm3 (150-400); RDW Coefficient Variation 12.5 % (11.7-14.2); RDW Standard Deviation 43.2 fL (35.1-46.3); Red Blood Cell Count 4.32 M/mm3 (4.30-5.90); White Blood Cell Count 7.81 K/mm3 (4.00-11.30)
[2021-01-15 04:58] LABS: Albumin, Blood 3.6 g/dL (3.4-5.0); Bun/Creatinine Ratio 17.1 (12.0-20.0); Calcium, Blood 8.5 mg/dL (8.5-10.1); Creatinine, Blood 1.46 mg/dL (0.60-1.20); Globulin, Blood 3.5 g/dL (2.2-4.0); Potassium, Blood 3.3 mmol/L (3.5-5.5); Total Protein, Blood 7.1 g/dL (6.4-8.2); Troponin I 0.021 ng/mL (0.000-0.040)
--- NOTE | 2021-01-15 07:20 | NUR ---
Pt arrived to PCU 1, alert and oriented, states that he would like some ice chips. Appropriate in conversation. Vital signs stable, taken off of oxygen delivery 2 l/min and spo2 96% on room air.
--- NOTE | 2021-01-15 07:45 | NUR ---
Call to pt's sister Samreen at his request to notify her of admission.
[2021-01-15 08:57] LABS: Source, Urine Clean Catch
[2021-01-15 09:03] LABS: Appearance, Urine Clear (Clear); Bilirubin, Urine Neg (Neg); Blood, Urine Neg (Neg); Color, Urine Yellow (P-Yellow); Glucose Qualitative, Urine Neg (Neg); Ketones, Urine Neg (Neg); Leukocyte Esterase, Urine Neg (Neg); Nitrite, Urine Neg (Neg); Protein, Urine Neg (Neg); Urobilinogen, Urine NORM (Normal)
--- NOTE | 2021-01-15 09:11 | NUR ---
Call to pt's pharmacy, [facility], and requested doses and directions of his medications (he doesn't know them). they will fax the info to us at U.
[2021-01-15 13:08] LABS: CPK Creatine Kinase 158 U/L (39-308)
--- NOTE | 2021-01-15 15:41 | NUR ---
PT ROOM TRANFER PT TRANSFERRED TO MEDICAL FLOOR ROOM 333. REPORT GIVEN TO SANDEEP HARRIS. PT TRANPORTED BY BED BY SHERRY'Flavia.
--- NOTE | 2021-01-15 16:01 | NUR ---
PT BELONGINGS PT ARRIVED TO UNIT AT 0700 DURING SHIFT CHANGE. PT DID NOT HAVE JACKET, PHONE OR WALLET WITH HIS BELONGING BAG. PT BELIEVED BELONGINGS WERE ON ER BED. DATA ENTRY MACHINE OPERATOR AND I WENT THROUGH [facility] ON THIS UNIT, ER NURSE WENT THROUGH [facility] IN ED. NO BELONGINGS FOUND. PT ADVOCATE INFORMED AND WOULD LIKE PT TO HAVE FAMILY MEMBER CHECK HOME TO SEE IF BELONGINGS WERE LEFT THERE. CALLED SANDEEP HARRIS AND INFORMED HIM OF PLAN. SANDEEP HARRIS TO CALL FAMILY THIS AFTERNOON.
--- NOTE | 2021-01-15 18:11 | NUR ---
a+o but remains dizzy, up with sba but still unstable, has agreed to call for help and has done so, rm air, saline locked, bed in low position, will continue to monitor and treat until share bsr with noc nurse and pt
--- NOTE | 2021-01-15 18:18 | NUR ---
PT BELONGING UPDATE SANDEEP HARRIS CALLED TO INFORM FAMILY FOUND PT'S BELONGINGS AT PT'S HOUSE.
[2021-01-15 21:06] LABS: CPK Creatine Kinase 132 U/L (39-308)
[2021-01-16 05:11] LABS: BASOPHILS ABSOLUTE AUTO 0.02 K/mm3 (0.00-0.23); BASOPHILS PERCENT AUTO 0 % (0-2); EOSINOPHILS ABSOLUTE AUTO 0.21 K/mm3 (0.00-0.68); EOSINOPHILS PERCENT AUTO 3 % (0-6); Hematocrit 38.9 % (37.0-53.0); Hemoglobin 12.6 g/dL (13.5-17.5); IMMATURE GRAN ABSOLUTE AUTO 0.02 K/mm3 (0.00-0.10); IMMATURE GRAN PERCENT AUTO 0 % (0-1); LYMPHOCYTES ABSOLUTE AUTO 1.88 K/mm3 (0.84-5.20); LYMPHOCYTES PERCENT AUTO 25 % (21-46); MONOCYTES ABSOLUTE AUTO 0.57 K/mm3 (0.16-1.47); MONOCYTES PERCENT AUTO 8 % (4-13); Mean Corpuscular HGB 30.6 pg (26.0-34.0); Mean Corpuscular HGB Conc 32.4 g/dL (31.5-36.5); Mean Corpuscular Volume 94 fL (80-100); Mean Platelet Volume 9.2 fL (9.1-12.4); NEUTROPHILS ABSOLUTE AUTO 4.71 K/mm3 (1.96-9.15); NEUTROPHILS PERCENT AUTO 64 % (41-73); Platelet Count 236 K/mm3 (150-400); RDW Coefficient Variation 12.6 % (11.7-14.2); RDW Standard Deviation 43.9 fL (35.1-46.3); Red Blood Cell Count 4.12 M/mm3 (4.30-5.90); White Blood Cell Count 7.41 K/mm3 (4.00-11.30)
[2021-01-16 05:34] LABS: Alanine Aminotransfer (ALT/SGP 32 U/L (12-78); Albumin, Blood 3.1 g/dL (3.4-5.0); Albumin/Globulin Ratio 0.9 (0.8-1.8); Alk Phos 52 U/L (50-136); Anion Gap 2 mmol/L (6-16); Aspartate Aminotrans (AST/SGOT 15 U/L (12-37); Bilirubin, Total 0.7 mg/dL (0.1-1.0); Blood Urea Nitrogen 17 mg/dL (8-24); Bun/Creatinine Ratio 14.5 (12.0-20.0); CO2, Blood 33 mmol/L (21-32); Calcium, Blood 8.6 mg/dL (8.5-10.1); Chloride, Blood 107 mmol/L (98-108); Creatinine, Blood 1.17 mg/dL (0.60-1.20); Globulin, Blood 3.5 g/dL (2.2-4.0); Glomerular Filtration Rate >60 (60-); Glucose, Blood 92 mg/dL (70-99); Sodium, Blood 142 mmol/L (136-145); Total Protein, Blood 6.6 g/dL (6.4-8.2)
--- NOTE | 2021-01-16 06:40 | NUR ---
FIRE MANAGEMENT TECHNICIAN SUMMARY PT SLEPT MOST OF THE NIGHT. PT IS A/O X4, USES CALL LIGHT APPROPRIATELY. DENIES PAIN, SOB, NAUSEA. PT CONTINUES TO FEEL DIZZY WHEN TURINING HIS HEAD. REQUIRES 1-2 ASSIST WITH FWW WITH UNSTEADY GAIT. VSS. CALL LIGHT WITHIN REACH, BED ALARM ON. WILL REPORT TO ONCOMING RN.
--- NOTE | 2021-01-16 10:30 | NUR ---
PMT CALLED R/V TACH RUN, PT STATES HE FELT NOTHING AND THAT HE FEELS FINE RT NOW, VSS, WILL CONTINUE TO MONITOR AND TREAT APPROPRIATE, JUST IN TO ASSESS
[2021-01-16] MEDS ORDERED: MECL25 PO (10:35)
--- NOTE | 2021-01-16 11:17 | NUR ---
DISCHARGED: A+O, insisted on wearing hospital gown out, escorted in wc to waiting car by staff, assisted into car by staff, REVIEWED: stay, medications, discharge instructions and appointments, REMOVED: tele and both iv's no issues noted with either IV, pt stated he was pleased with care but was looking forward to getting home and staying there, dr in to assess and encourage just be for leaving, no further indication of heart issues beyond the short run of vtach this morning, a+o at baseline
== END 2021-01-16 11:26 | disposition home or self-care (01) ==
LOC: ER 04:10 → PCU 04:11 → MEDS 15:49
PROVIDERS: Emergency Medicine; ADMIT Internal Medicine
DX: E87.2 Acidosis (principal); E87.6 Hypokalemia; T43.621S Poisoning by amphetamines, accidental (unintentional), sequela; R42 Dizziness and giddiness; R79.89 Other specified abnormal findings of blood chemistry; I42.7 Cardiomyopathy due to drug and external agent; F15.11 Other stimulant abuse, in remission; I13.0 Hypertensive heart and chronic kidney disease with heart failure and stage 1 through stage 4 chronic kidney disease, or unspecified chronic kidney disease; N18.30 Chronic kidney disease, stage 3 unspecified; I50.22 Chronic systolic (congestive) heart failure; Z95.810 Presence of automatic (implantable) cardiac defibrillator; Z79.01 Long term (current) use of anticoagulants
CPT/HCPCS: 36415; 71046; 80047; 80053; 81003; 82550; 83605; 83880; 84484; 85014; 85025; 87040; 93005; 93010; 96360; 96372; 99285-25; A9270; G0378; J1650; J3480; J7030; J7040

== ENCOUNTER 2021-03-02 06:03 | Day surgery (SDC) | payer OTHER ==
[~2021-03-02] VITALS: Ht 175.3 cm; Wt 95.0 kg
[~2021-03-02 06:03] MED LIST changes: +ATOR20 PO; +MECL25 PO
[2021-03-02] MEDS ORDERED: SYMBICORT 160-4.6 GM (06:40)
[2021-03-02] MEDS ORDERED: CENTRUM SILVER1 EAC2 PO (06:41)
--- NOTE | 2021-03-02 11:56 | NUR ---
DISCHARGE PT REMAINED A&OX3 AND DENIED ANY PAIN DURING RECOVERY. RIGHT RADIAL SITE-TR BAND REMOVED-REPLACED WITH CLOTH DOT AND WHITE BOARD.-CDI NO HEMATOMA NOTED. IV DC'D WITH CANULA IN TACT. PT ABLE TO DRESS SELF. DISCHARGE PAPERWORK GONE OVER WITH PT. PT VERBALY STATED THE UNDERSTANDING OF THE DISCHARGE PAPERWORK AND DENIED ANY QUESTIONS AT THIS TIME. PT WHEELD OUT BY THIS NURS.
== END 2021-03-02 11:30 | disposition home or self-care (01) ==
LOC: MHTC 06:03
DX: I42.0 Dilated cardiomyopathy (principal); I44.7 Left bundle-branch block, unspecified; I11.0 Hypertensive heart disease with heart failure; I50.9 Heart failure, unspecified; E78.5 Hyperlipidemia, unspecified
CPT/HCPCS: 93460; 99152; C1769; C1894; J1644; J2250; J3010; J7030; J7050; Q9967

== ENCOUNTER 2021-05-08 21:28 | Emergency (ER) | payer OTHER ==
[~2021-05-08] VITALS: Ht 175.3 cm; Wt 94.3 kg
[~2021-05-08 21:28] MED LIST changes: +CENTRUM SILVER1 EAC2 PO; +SYMBICORT 160-4.6 GM
== END 2021-05-08 22:15 | disposition home or self-care (01) ==
LOC: ER 21:28
DX: S50.811A Abrasion of right forearm, initial encounter (principal); I12.9 Hypertensive chronic kidney disease with stage 1 through stage 4 chronic kidney disease, or unspecified chronic kidney disease; N18.30 Chronic kidney disease, stage 3 unspecified; Z79.899 Other long term (current) drug therapy; Z79.01 Long term (current) use of anticoagulants; W01.198A Fall on same level from slipping, tripping and stumbling with subsequent striking against other object, initial encounter
CPT/HCPCS: 99282

== ENCOUNTER 2022-03-14 02:41 | Inpatient (IN) | payer OTHER ==
[~2022-03-14] VITALS: Ht 175.3 cm; Wt 91.6 kg
[~2022-03-14 02:41] MED LIST changes: +ISOSORBIDE MONO PO; -Isosorbide Mono30 MG PO; +SOAANZ40 MG PO; -TORSE20 PO
[2022-03-14 02:59] LABS: BASOPHILS ABSOLUTE AUTO 0.04 K/mm3 (0.00-0.23); BASOPHILS PERCENT AUTO 0 % (0-2); EOSINOPHILS ABSOLUTE AUTO 0.04 K/mm3 (0.00-0.68); EOSINOPHILS PERCENT AUTO 0 % (0-6); Hematocrit 45.3 % (37.0-53.0); IMMATURE GRAN ABSOLUTE AUTO 0.03 K/mm3 (0.00-0.10); IMMATURE GRAN PERCENT AUTO 0 % (0-1); LYMPHOCYTES ABSOLUTE AUTO 1.28 K/mm3 (0.84-5.20); LYMPHOCYTES PERCENT AUTO 10 % (21-46); MONOCYTES ABSOLUTE AUTO 1.19 K/mm3 (0.16-1.47); MONOCYTES PERCENT AUTO 9 % (4-13); Mean Corpuscular HGB 30.9 pg (26.0-34.0); Mean Corpuscular HGB Conc 33.1 g/dL (31.5-36.5); Mean Corpuscular Volume 93 fL (80-100); Mean Platelet Volume 9.7 fL (9.1-12.4); NEUTROPHILS ABSOLUTE AUTO 10.75 K/mm3 (1.96-9.15); NEUTROPHILS PERCENT AUTO 81 % (41-73); Platelet Count 245 K/mm3 (150-400); RDW Coefficient Variation 12.9 % (11.7-14.2); RDW Standard Deviation 44.1 fL (35.1-46.3); Red Blood Cell Count 4.86 M/mm3 (4.30-5.90); White Blood Cell Count 13.33 K/mm3 (4.00-11.30)
[2022-03-14 03:16] LABS: International Normalized Ratio 1.1; Prothrombin Time Results 11.5 Sec (9.7-11.5)
[2022-03-14 03:18] LABS: Albumin, Blood 4.2 g/dL (3.4-5.0); Albumin/Globulin Ratio 1.2 (0.8-1.8); Bun/Creatinine Ratio 15.6 (12.0-20.0); Calcium, Blood 9.5 mg/dL (8.5-10.1); Creatinine, Blood 1.28 mg/dL (0.60-1.20); Globulin, Blood 3.5 g/dL (2.2-4.0); Potassium, Blood 4.2 mmol/L (3.5-5.5); Total Protein, Blood 7.7 g/dL (6.4-8.2)
[2022-03-14 08:01] LABS: CPK Creatine Kinase 183 U/L (39-308)
[2022-03-14 10:13] LABS: Base Excess Venous 7.3 mmol/L; Bicarbonate Venous 29.5 mmol/L (24.0-30.0); PCO2 Venous 51.3 mmHg (38-42); PO2 Venous 68.5 mmHg (38-42)
[2022-03-14 11:06] LABS: U Amphetamine Screen Not Detected; U Barbituate Screen Not Detected; U Benzodiazapine Screen Not Detected; U Buprenorphine Screen Not Detected; U Cannabinoids Screen Not Detected; U Cocaine Screen Not Detected; U Methadone Screen Not Detected; U Methamphetamine Screen Not Detected; U Opiates Screen Not Detected; U Oxycodone Screen Not Detected; U Phencyclidine Screen Not Detected; U Propoxyphene Screen Not Detected
--- NOTE | 2022-03-14 11:22 | NUR ---
Admit Note Received report from SANDEEP Bhandari in ED. Pt to room, sba to bed. Pt appears to be sleeping, occasionally nods when asked questions, unable to answer orientation questions. Dr Hector at bedside, new orders for stat VBG and tox ua. Pt more awake approx an hour after admission, alert, oriented x3, unsure of date. Pt denies pain, chest pain, nausea, dizziness and numb/tingling. Pt sob with exertion or heart rate increase, Tele 90-120, increased to 150-160, notiifed Dr Hector, new orders for metoprolol iv push, administered, hr back down to 110-130's, bp stable. Abd soft, nontender, bt normoactive t/o, pt unsure of last bm. Other vss. No s/sx if distress noted. Updated medciations list, notified MD. Will continue to monitor.
[2022-03-14 13:44] LABS: CPK Creatine Kinase 181 U/L (39-308)
--- NOTE | 2022-03-14 17:16 | NUR ---
Shift Summary Pt heart trended back up to 130's, home medication order, pt states he has not taken his home medications for a couple of days, hr 90-110's touching 120s with activity. Low grade fever noted 99.7 this evening, pt reuqesting cool washcloth and fan provided. Pt alert, oriented x4, cooperative with care. Up in room sba. No other acute changes noted. No s/sx of distress noted. Will continue to monitor unitl report given to oncoming rn.
[2022-03-14] MEDS ORDERED: ALBU90OI INH (18:05)
[2022-03-14] MEDS ORDERED: Acetaminophen650 M1 PO (18:05)
[2022-03-14] MEDS ORDERED: ALLO300 PO (18:06)
[2022-03-14] MEDS ORDERED: AMLODIPINE BESY10 MG PO (18:07)
[2022-03-14] MEDS ORDERED: Aspir 8181 MG PO (18:07)
[2022-03-14] MEDS ORDERED: ATOR40TA PO (18:07)
--- NOTE | 2022-03-15 01:02 | NUR ---
0000 UPDATE PATIENT GOT UP TO USE RESTROOM AND IT WAS NOTED BY TELE THAT HE CONVERTED TO AFIB WITH A RATE 130s-140s. PATIENT SITTING UP TO SIDE OF BED WITH INCREASED WORK OF BREATHING WITH O2 SAT LOW TO MID 90s ON 3L NC. VITALS OBTAINED, PRN IV LOPRESSOR GIVEN WITH NO CHANGE IN THE RATE OR RHYTHM. PATIENT REMAINS ASYMPTOMATIC AND DENIES CHEST PAIN/PRESSURE. RT AT BEDSIDE PLACING PT ON CPAP. CALL PLACED TO HOSPITALIST. ORDER FOR IV METOPROLOL RECIEVED, SEE UPDATED ORDERS. EKG OBTAINED.
--- NOTE | 2022-03-15 03:06 | NUR ---
UPDATE PATIENT HR MAINTAINING 120s-130s. CALL PLACED TO HOSPITALIST TO UPDATE AFTER 2 DOSES OF IV LOPRESSOR GIVEN WITH NO CHANGE. NEW ORDER FOR DIGOXIN x2 DOSES. SEE UPDATED ORDERS/EMAR.
[2022-03-15 04:26] LABS: BASOPHILS ABSOLUTE AUTO 0.03 K/mm3 (0.00-0.23); BASOPHILS PERCENT AUTO 0 % (0-2); EOSINOPHILS ABSOLUTE AUTO 0.13 K/mm3 (0.00-0.68); EOSINOPHILS PERCENT AUTO 1 % (0-6); Hematocrit 41.1 % (37.0-53.0); IMMATURE GRAN ABSOLUTE AUTO 0.02 K/mm3 (0.00-0.10); IMMATURE GRAN PERCENT AUTO 0 % (0-1); LYMPHOCYTES ABSOLUTE AUTO 1.98 K/mm3 (0.84-5.20); LYMPHOCYTES PERCENT AUTO 20 % (21-46); MONOCYTES ABSOLUTE AUTO 1.27 K/mm3 (0.16-1.47); MONOCYTES PERCENT AUTO 13 % (4-13); Mean Corpuscular HGB 30.3 pg (26.0-34.0); Mean Corpuscular HGB Conc 31.6 g/dL (31.5-36.5); Mean Corpuscular Volume 96 fL (80-100); NEUTROPHILS ABSOLUTE AUTO 6.59 K/mm3 (1.96-9.15); NEUTROPHILS PERCENT AUTO 66 % (41-73); Platelet Count 201 K/mm3 (150-400); RDW Coefficient Variation 12.9 % (11.7-14.2); RDW Standard Deviation 45.6 fL (35.1-46.3); Red Blood Cell Count 4.29 M/mm3 (4.30-5.90); White Blood Cell Count 10.02 K/mm3 (4.00-11.30)
[2022-03-15 04:47] LABS: Albumin, Blood 3.6 g/dL (3.4-5.0); Albumin/Globulin Ratio 1.1 (0.8-1.8); Bilirubin, Total 1.2 mg/dL (0.1-1.0); Bun/Creatinine Ratio 19.1 (12.0-20.0); Calcium, Blood 8.7 mg/dL (8.5-10.1); Creatinine, Blood 1.41 mg/dL (0.60-1.20); Globulin, Blood 3.4 g/dL (2.2-4.0); Potassium, Blood 3.9 mmol/L (3.5-5.5)
--- NOTE | 2022-03-15 06:20 | NUR ---
SHIFT SUMMARY PATIENT ALERT AND ORIENTED x4. VSS. TELE READING AFIB 130s-140s. SEE PREVIOUS NOTES. PATIENT ON 3L NC FOR MAJORITY OF NIGHT WITH O2 SAT >90%. CPAP AT BEDSIDE ON STANDBY. PATIENT ABLE TO MOVE SELF IN BED INDEPENDENTLY. USING URINAL AT BEDSIDE. FOLLOWED [employer] [facility] [employer] [facility]PITAL[facility] RECCOMENDATIONS, NO CARDIOLOGY CONSULT AT THIS TIME, DAY SHIFT HOSPITALIST TO REEVALUATE THIS MORNING. PATIENT ABLE TO MAKE NEEDS KNOWN TO STAFF AND USES CALL LIGHT APPROPRIATELY. NO OTHER CHANGES SINCE PREVIOUS NOTES. WILL GIVE REPORT TO DAY SHIFT RN.
--- NOTE | 2022-03-15 10:20 | NUR ---
AM NOTE PATIENT IS A&O X4, PLEASANT AND COOPERATIVE W CARE. TELE AFIB 120S. SPO2 >90% ON 2-3L O2 NC. PATIENT DID HAVE SOME CONGESTION IN THE LEFT NOSTRIL, DR VILLANUEVA PLACED AN ORDER FOR A SALINE SPRAY TO USE PRN. VSS AT THIS TIME. PATIENT DENIES CP/PRESSURE, NAUSEA, SOB, NUMBNESS/TINGLING. DR RALPH AT [facility] THIS AM FOR CONSULTATION.
--- NOTE | 2022-03-15 10:47 | NUR ---
Clarified new order with Dr Soto, rescheduled digoxin to be given q4 hours after last dose given. Will continue to monitor.
--- NOTE | 2022-03-15 17:32 | NUR ---
SHIFT SUMMARY PATIENT REMAINED PLEASANT, COOPERATIVE W CARE, AND A&O X4. TELE AFIB W PVCS 90S. SPO2>90% RA, 02 TITRATED DOWN TOLERATED BY PATIENT. PATIENT GIVEN IV BUMEX AND CONTINUES WITH IV DIGOXIN. NO ACUTE EVENTS TODAY. WILL CONTINUE TO MONITOR UNTIL REPORT GIVEN TO THE ONCOMING SHIFT.
--- NOTE | 2022-03-15 18:28 | NUR ---
I have reviewed the chief nursing officer documentation and am in agreement. Pt receiving iv digoxin and iv bumex during shift. BP soft during shift, notified Dr Soto, new orders to hold second dose of bumex and change order to once daily, continue with digoxin administration. Heart rate trending down 80-100's, touching 120s with activity. Will continue to monitor until report given to oncoming RN
[2022-03-16 04:26] LABS: BASOPHILS ABSOLUTE AUTO 0.05 K/mm3 (0.00-0.23); BASOPHILS PERCENT AUTO 1 % (0-2); EOSINOPHILS ABSOLUTE AUTO 0.17 K/mm3 (0.00-0.68); EOSINOPHILS PERCENT AUTO 2 % (0-6); Hemoglobin 12.5 g/dL (13.5-17.5); IMMATURE GRAN ABSOLUTE AUTO 0.02 K/mm3 (0.00-0.10); IMMATURE GRAN PERCENT AUTO 0 % (0-1); LYMPHOCYTES ABSOLUTE AUTO 1.65 K/mm3 (0.84-5.20); LYMPHOCYTES PERCENT AUTO 19 % (21-46); MONOCYTES ABSOLUTE AUTO 0.94 K/mm3 (0.16-1.47); MONOCYTES PERCENT AUTO 11 % (4-13); Mean Corpuscular HGB 30.5 pg (26.0-34.0); Mean Corpuscular HGB Conc 32.1 g/dL (31.5-36.5); Mean Corpuscular Volume 95 fL (80-100); Mean Platelet Volume 10.1 fL (9.1-12.4); NEUTROPHILS ABSOLUTE AUTO 6.05 K/mm3 (1.96-9.15); NEUTROPHILS PERCENT AUTO 68 % (41-73); Platelet Count 206 K/mm3 (150-400); RDW Coefficient Variation 12.4 % (11.7-14.2); RDW Standard Deviation 43.8 fL (35.1-46.3); White Blood Cell Count 8.88 K/mm3 (4.00-11.30)
[2022-03-16 04:43] LABS: Magnesium, Blood 2.1 mg/dL (1.6-2.4)
[2022-03-16 04:44] LABS: Albumin, Blood 3.2 g/dL (3.4-5.0); Anion Gap 5 mmol/L (6-16); Blood Urea Nitrogen 33 mg/dL (8-24); CO2, Blood 34 mmol/L (21-32); Calcium, Blood 8.5 mg/dL (8.5-10.1); Chloride, Blood 99 mmol/L (98-108); Creatinine, Blood 1.32 mg/dL (0.60-1.20); Glomerular Filtration Rate 55 (60-); Glucose, Blood 138 mg/dL (70-99); Phosphorus, Blood 3.2 mg/dL (2.5-4.9); Potassium, Blood 3.2 mmol/L (3.5-5.5); Sodium, Blood 138 mmol/L (136-145)
--- NOTE | 2022-03-16 05:54 | NUR ---
SHIFT SUMMARY PATIENT ALERT AND ORIENTED x4. ABLE TO MAKE NEEDS KNOWN TO STAFF, USES CALL LIGHT APPROPRIATELY. VSS. PATIENT REMAINS ON RA. TELE READING AFIB WITH OCCASIONAL PVCs 90s-100s. DENIES CHEST PAIN/SOB. PATIENT USING URINAL AT BEDSIDE INDEPENDENTLY. ABLE TO TURN SELF IN BED. NO SIGNIFICANT CHANGES THIS SHIFT. WILL REPORT TO DAY SHIFT RN.
[2022-03-16] MEDS ORDERED: DIGOX125 MC1 PO (09:58)
[2022-03-16] MEDS ORDERED: SPIR25 PO (09:59)
[2022-03-16] MEDS ORDERED: B-1100 M2 PO (09:59)
--- NOTE | 2022-03-16 10:43 | NUR ---
DC NOTE Pt is a/o x 4 and has no complaints this morning. He has been independent in his room. He has a good appetite and is knowledgable about his plan of care. Per the pt the foundry worker met with him this morning to discuss medication changes and follow up plans. Pt is on room air. The discharge instructions were reviewed with the pt and all his questions were answered. He reported that he has family members that are going to help him when he returns home. His IV was removed with no issue. He packed his personal belongings and called his sister in law for a ride. He was assisted out to the car and was stable upon discharge.
== END 2022-03-16 10:43 | disposition home or self-care (01) | DRG 291 ==
LOC: ER 02:41 → PCU 05:04 → ERHOLD 05:04 → PCU 08:53
PROVIDERS: Family Medicine; Student in an Organized Health Care Education/Training Program; ADMIT Internal Medicine
PROC: 5A09357 Assistance with Respiratory Ventilation, Less than 24 Consecutive Hours, Continuous Positive Airway Pressure (ICD-10-PCS; principal; 2022-03-14)
DX: I13.0 Hypertensive heart and chronic kidney disease with heart failure and stage 1 through stage 4 chronic kidney disease, or unspecified chronic kidney disease (principal); I50.23 Acute on chronic systolic (congestive) heart failure; J96.01 Acute respiratory failure with hypoxia; I24.8 Other forms of acute ischemic heart disease; D72.829 Elevated white blood cell count, unspecified; N18.30 Chronic kidney disease, stage 3 unspecified; D63.1 Anemia in chronic kidney disease; I48.91 Unspecified atrial fibrillation; I42.8 Other cardiomyopathies; G47.33 Obstructive sleep apnea (adult) (pediatric); Z79.01 Long term (current) use of anticoagulants; Z79.899 Other long term (current) drug therapy; Z95.810 Presence of automatic (implantable) cardiac defibrillator
CPT/HCPCS: 36415; 71045; 80053; 80069; 82550; 82803; 83735; 83880; 84145; 84484; 85025; 85610; 93005; 93010; 94640; 94660; 94664; 94760; 94762; 96374; 99285-25; A9270; J1160; J1650; J1940

== ENCOUNTER 2022-04-06 13:32 | Emergency (ER) | payer OTHER ==
[~2022-04-06] VITALS: Ht 175.3 cm; Wt 96.2 kg
[~2022-04-06 13:32] MED LIST changes: +ALLO300 PO; +AMLODIPINE BESY10 MG PO; +ATOR40TA PO; +Acetaminophen650 M1 PO; +Aspir 8181 MG PO; +B-1100 M2 PO; +DIGOX125 MC1 PO; +SPIR25 PO
[2022-04-06 14:09] LABS: BASOPHILS ABSOLUTE AUTO 0.05 K/mm3 (0.00-0.23); BASOPHILS PERCENT AUTO 1 % (0-2); EOSINOPHILS ABSOLUTE AUTO 0.17 K/mm3 (0.00-0.68); EOSINOPHILS PERCENT AUTO 2 % (0-6); Hematocrit 46.9 % (37.0-53.0); Hemoglobin 15.5 g/dL (13.5-17.5); IMMATURE GRAN ABSOLUTE AUTO 0.02 K/mm3 (0.00-0.10); IMMATURE GRAN PERCENT AUTO 0 % (0-1); LYMPHOCYTES ABSOLUTE AUTO 1.89 K/mm3 (0.84-5.20); LYMPHOCYTES PERCENT AUTO 21 % (21-46); MONOCYTES ABSOLUTE AUTO 0.83 K/mm3 (0.16-1.47); MONOCYTES PERCENT AUTO 9 % (4-13); Mean Corpuscular HGB 30.3 pg (26.0-34.0); Mean Corpuscular Volume 92 fL (80-100); Mean Platelet Volume 9.7 fL (9.1-12.4); NEUTROPHILS ABSOLUTE AUTO 5.99 K/mm3 (1.96-9.15); NEUTROPHILS PERCENT AUTO 67 % (41-73); Platelet Count 288 K/mm3 (150-400); RDW Coefficient Variation 12.3 % (11.7-14.2); RDW Standard Deviation 41.8 fL (35.1-46.3); Red Blood Cell Count 5.11 M/mm3 (4.30-5.90); White Blood Cell Count 8.95 K/mm3 (4.00-11.30)
[2022-04-06 14:43] LABS: Albumin, Blood 4.1 g/dL (3.4-5.0); Bilirubin, Total 0.9 mg/dL (0.1-1.0); Bun/Creatinine Ratio 20.5 (12.0-20.0); Calcium, Blood 9.9 mg/dL (8.5-10.1); Creatinine, Blood 1.32 mg/dL (0.60-1.20); Globulin, Blood 4.2 g/dL (2.2-4.0); Magnesium, Blood 2.1 mg/dL (1.6-2.4); Total Protein, Blood 8.3 g/dL (6.4-8.2)
[2022-04-06 15:51] LABS: Digoxin (Lanoxin) 0.81 ug/mL (0.80-2.00)
[2022-04-06 17:22] LABS: U Amphetamine Screen Not Detected; U Barbituate Screen Not Detected; U Benzodiazapine Screen Not Detected; U Buprenorphine Screen Not Detected; U Cannabinoids Screen Not Detected; U Cocaine Screen Not Detected; U Methadone Screen Not Detected; U Methamphetamine Screen Not Detected; U Opiates Screen Not Detected; U Oxycodone Screen Not Detected; U Phencyclidine Screen Not Detected; U Propoxyphene Screen Not Detected
== END 2022-04-06 18:00 | disposition home or self-care (01) ==
LOC: ER 13:32
PROVIDERS: Internal Medicine; Physician Assistant; Student in an Organized Health Care Education/Training Program
DX: I48.91 Unspecified atrial fibrillation (principal); I13.0 Hypertensive heart and chronic kidney disease with heart failure and stage 1 through stage 4 chronic kidney disease, or unspecified chronic kidney disease; N18.30 Chronic kidney disease, stage 3 unspecified; I50.9 Heart failure, unspecified; R00.0 Tachycardia, unspecified; Z95.810 Presence of automatic (implantable) cardiac defibrillator; Z79.899 Other long term (current) drug therapy
CPT/HCPCS: 36415; 80053; 80162; 83735; 84443; 84484; 85025; 93005; 93010; 96374; 99284-25; A9270

== ENCOUNTER 2022-05-28 11:38 | Inpatient (IN) | payer OTHER ==
[~2022-05-28] VITALS: Ht 175.3 cm; Wt 95.5 kg
[~2022-05-28 11:38] MED LIST changes: -SOAANZ40 MG PO; +TORSE20 PO
[2022-05-28 12:31] LABS: BASOPHILS ABSOLUTE AUTO 0.05 K/mm3 (0.00-0.23); BASOPHILS PERCENT AUTO 0 % (0-2); EOSINOPHILS ABSOLUTE AUTO 0.04 K/mm3 (0.00-0.68); EOSINOPHILS PERCENT AUTO 0 % (0-6); Hematocrit 42.3 % (37.0-53.0); Hemoglobin 14.2 g/dL (13.5-17.5); IMMATURE GRAN ABSOLUTE AUTO 0.02 K/mm3 (0.00-0.10); IMMATURE GRAN PERCENT AUTO 0 % (0-1); LYMPHOCYTES ABSOLUTE AUTO 2.14 K/mm3 (0.84-5.20); LYMPHOCYTES PERCENT AUTO 19 % (21-46); MONOCYTES ABSOLUTE AUTO 1.21 K/mm3 (0.16-1.47); MONOCYTES PERCENT AUTO 11 % (4-13); Mean Corpuscular HGB 30.7 pg (26.0-34.0); Mean Corpuscular HGB Conc 33.6 g/dL (31.5-36.5); Mean Corpuscular Volume 91 fL (80-100); Mean Platelet Volume 9.9 fL (9.1-12.4); NEUTROPHILS ABSOLUTE AUTO 7.72 K/mm3 (1.96-9.15); NEUTROPHILS PERCENT AUTO 69 % (41-73); Platelet Count 252 K/mm3 (150-400); RDW Coefficient Variation 13.1 % (11.7-14.2); RDW Standard Deviation 42.6 fL (35.1-46.3); Red Blood Cell Count 4.63 M/mm3 (4.30-5.90); White Blood Cell Count 11.18 K/mm3 (4.00-11.30)
[2022-05-28 12:49] LABS: Albumin, Blood 4.2 g/dL (3.4-5.0); Albumin/Globulin Ratio 1.2 (0.8-1.8); Bun/Creatinine Ratio 20.6 (12.0-20.0); Calcium, Blood 9.7 mg/dL (8.5-10.1); Creatinine, Blood 1.31 mg/dL (0.60-1.20); Globulin, Blood 3.6 g/dL (2.2-4.0); Potassium, Blood 3.7 mmol/L (3.5-5.5); Total Protein, Blood 7.8 g/dL (6.4-8.2)
[2022-05-28 15:19] LABS: U Amphetamine Screen Not Detected; U Barbituate Screen Not Detected; U Benzodiazapine Screen Not Detected; U Buprenorphine Screen Not Detected; U Cannabinoids Screen Not Detected; U Cocaine Screen Not Detected; U Methadone Screen Not Detected; U Methamphetamine Screen Not Detected; U Opiates Screen Not Detected; U Oxycodone Screen Not Detected; U Phencyclidine Screen Not Detected; U Propoxyphene Screen Not Detected
--- NOTE | 2022-05-28 16:53 | NUR ---
RECEIVED PT FROM ER [facility]IA [facility]. PT IS A&OX4. PT ABLE TO STAND AND TRANSFER TO BED WITH STANDBY ASSIST. ECG CONTINUES AFIB WITH RATE 140'S. SBP 140-160'S/100'S. DP/PT PULSES 2+. NO NOTED EDEMA. SOB WITH EXERTION, BUT MAINTAINS SATS>90% ON RA. LUNGS WITH FEW, FINE, CRACKLES TO BASES. NO NOTED COUGH. PT DENIES CHEST PAIN. PT STATES THAT HE IS HUNGRY. CARDIAC TRAY GIVEN. PT DENIES THE NEED TO VOID AT THIS TIME. SKIN IS PALE AND DIAPHORETIC. PT ORIENTED TO ROOM AND ICU PROCEDURE. CALL LIGHT WITHIN REACH.
--- NOTE | 2022-05-28 17:10 | NUR ---
PT GIVEN EVENING DOSE OF TOPROL-SEE EMAR. CARDIAC DINNER TRAY GIVEN. PT DENIES COMPLAINTS-CALL LIGHT WITHIN REACH.
[2022-05-28] MEDS ORDERED: B-1100 M1 PO (17:33)
--- NOTE | 2022-05-28 19:15 | NUR ---
ASSUMPTION OF CARE PT SLEEPING, WAKENS EASILY TO VERBAL STIMULI. HE IS A&OX4, VERY PLEASANT AFFECT. HE IS ON RA. WHEN SITTING ON EDGE OF BED HE BEGAN TO DESAT TO 88%. 2L NC IN PLACE AND SPO2 >95%. EXPRESSES FEELING SOB WITH EXCERTION, OCCASIONAL COUGH. AFIB ON MONITOR WITH HR 90S-100S. HR DOES INCREASE WITH EXCERTION TO 120S-140S. HE DENIES CP/CHEST DISCOMFORT, PALPITATIONS, AND HEADACHE. SBP 130S. PT REQUESTS SNACK. PROVIDED SANDWICH, CHEESE AND PUDDING. ABDOMEN SOFT TO PALPATION, BOWEL TONES ACTIVE. URINAL AT BEDSIDE, PT HAS NOT VOIDED YET. ENCOURAGED PO FLUIDS. SKIN WNL. HE IS SALINE LOCKED WITH 18G IN LFA AND 20G IN RFA. HE DENIES ANY PAIN OR DISCOMFORT, REPORTS SINCE RESTING HE IS "FEELING ALOT BETTER". CALL LIGHT WITHIN REACH, BED IN LOW POSITION.
--- NOTE | 2022-05-28 20:30 | NUR ---
STATUS CHANGE CALL PLACED TO DR CARPENTER HOSPITALIST FOR STATUS CHANGE. PLAN TO MOVE TO PCU.
--- NOTE | 2022-05-28 20:50 | NUR ---
TRANSFER TO PCU REPORT GIVEN TO KRISTIAN HOPKINS. PT TRANSFERRED TO PCU VIA WHEELCHAIR WITH VIVIANA POWELL. PT TRANSFERRED FROM BED TO WHEELCHAIR WITH STANDBY ASSIST. PT ON TELE DURING TRANSPORT.
--- NOTE | 2022-05-28 21:27 | NUR ---
TRANSFER FROM ICU3 TO PCU 15 AT APPROX. 2105 VIA W/C. REPORT RECIEVED FROM CHRISTAL HOPKINS. TELE CURRENTLY RUNNING AFIB 100-120.
[2022-05-29 02:39] LABS: Bun/Creatinine Ratio 23.8 (12.0-20.0); Calcium, Blood 9.2 mg/dL (8.5-10.1); Creatinine, Blood 1.3 mg/dL (0.60-1.20); Potassium, Blood 3.7 mmol/L (3.5-5.5)
[2022-05-29 02:54] LABS: Digoxin (Lanoxin) 1.13 ug/mL (0.80-2.00)
--- NOTE | 2022-05-29 06:16 | NUR ---
SHIFT SUMMARY A/OX4, SBA TO BATHROOM. TELE AFIB WITH MULTIPLE PVC'S RATE OF 80-100. DIGOXIN LOADING DOSE X2 THIS SHIFT. BP'S RUNNING SOFT. DENIES CHEST PAIN/PRESSURE. CRACKLES TO BILATERAL BASES. NO ACUTE CHANGES AT THIS TIME. BED IN LOWEST POSITION WITH CALL LIGHT IN REACH. WILL CONTINUE TO MONITOR AND REPORT TO ONCOMING RN.
--- NOTE | 2022-05-29 17:55 | NUR ---
SHIFT SUMMARY PT HAS BEEN INDEPENDENT IN ROOM, THEY HAVE CALLED APPROPRIATELY FOR ASSISTANCE AND BEEN COOPERATIVE WITH CARES. PT HAS EXPRESSED THEIR DESIRE TO DISCHARGE AND RETURN HOME BUT HAS BEEN PATIENT WITH THE CARE TEAM. BLOOD PRESSURE THIS AM WAS 101/65, CAME UP TO 135/78 AROUND NOON, AND FELL TO 89/75 FOR THE AFTERNOON, PT DENIED ANY SYMPTOMS DURING PERIODS OF LOW SBP.
[2022-05-30 04:07] LABS: Bun/Creatinine Ratio 19.3 (12.0-20.0); Calcium, Blood 9.2 mg/dL (8.5-10.1); Creatinine, Blood 1.09 mg/dL (0.60-1.20); Potassium, Blood 3.8 mmol/L (3.5-5.5)
--- NOTE | 2022-05-30 06:25 | NUR ---
SHIFT SUMMARY: PATIENT DENIES DIZZINESS, SOB, CHEST PAIN, OR OTHER DISCOMFORT. HAS HAD 6-18 BEATS OF VTACH WHEN IN MOTION - REMAINS ASYMPTOMATIC. MEDICATED PER EMAR. PATIENT INDEPENDENT IN ROOM AND HAS SAT IN CHAIR OCCASIONALLY T/O SHIFT. USES CALL LIGHT APPROPRIATELY. BED LOW WITH CALL LIGHT IN REACH. WILL CONTINUE TO MONITOR AND REPORT TO ONCOMING RN.
[2022-05-30] MEDS ORDERED: METO50ER PO (14:42)
--- NOTE | 2022-05-30 15:30 | NUR ---
DISCHARGE SUMMARY PT WAS TRANSPORTED BY WHEELCHAIR TO PERSONAL VEHICLE. ALL PERSONAL BELONGINGS AND DISCHARGE INSTRUCTIONS WERE IN PT'S POSSESSION AT TIME OF DISCHARGE. ALL QUESTIONS AND CONCERNS WERE ADDRESSED PRIOR TO DISCHARGE.
== END 2022-05-30 15:15 | disposition home or self-care (01) | DRG 291 ==
LOC: ER 11:38 → ICUW 16:11 → ICUE 16:33 → PCU 21:06
PROVIDERS: Emergency Medicine; Family Medicine; Physician Assistant; Student in an Organized Health Care Education/Training Program; ADMIT Hospitalist
DX: I13.0 Hypertensive heart and chronic kidney disease with heart failure and stage 1 through stage 4 chronic kidney disease, or unspecified chronic kidney disease (principal); I50.23 Acute on chronic systolic (congestive) heart failure; F15.10 Other stimulant abuse, uncomplicated; N18.2 Chronic kidney disease, stage 2 (mild); Z95.1 Presence of aortocoronary bypass graft; Z79.899 Other long term (current) drug therapy; I42.9 Cardiomyopathy, unspecified
CPT/HCPCS: 36415; 71046; 80048; 80053; 80162; 83735; 83880; 84443; 84484; 85025; 93005; 93010; 96374; 99285-25; A9270; G0378; J1160; J1940; J7030

== ENCOUNTER 2024-11-15 11:31 | Emergency (ER) | payer OTHER ==
[~2024-11-15] VITALS: Ht 175.3 cm; Wt 92.5 kg
[~2024-11-15 11:31] MED LIST changes: +AMIODARONE HCL400 M2 PO; +Amiodarone HCl200 MG PO; +Amoxicillin875 MG PO; +B-1100 M1 PO; +ENTRESTO 24 MG1 EAC2 PO; +JARDIANCE10 MG PO
[2024-11-15 11:39] VITALS: BP 160/85
[2024-11-15] MEDS ORDERED: ATHLETE'S FOO35.4 GM TOP (12:18)
== END 2024-11-15 12:25 | disposition home or self-care (01) ==
LOC: ER 11:31
DX: B35.6 Tinea cruris (principal); I50.9 Heart failure, unspecified
CPT/HCPCS: 99282

== ENCOUNTER → 2024-12-11 | Outpatient (CLI) | payer OTHER ==
[~2024-12-11] MED LIST changes: +ATHLETE'S FOO35.4 GM TOP
== END ==
LOC: LAB SHORT 07:14 → LAB 07:14
DX: C44.612 Basal cell carcinoma of skin of right upper limb, including shoulder (principal); L57.8 Other skin changes due to chronic exposure to nonionizing radiation
CPT/HCPCS: 88305

== ENCOUNTER → 2025-09-05 | Outpatient (CLI) | payer OTHER ==
[~2025-09-05] MED LIST changes: +HYDR1TAB94 PO
== END ==
LOC: LAB SHORT 15:56 → LAB 15:56
DX: R97.20 Elevated prostate specific antigen [PSA] (principal)
CPT/HCPCS: 87070; 87077; 87186